=== PATIENT | male | born 1940 | race Caucasian/White ===

== ENCOUNTER → 2016-09-12 | Outpatient (CLI) | payer MEDICARE ==
[~2016-09-12] MED LIST: ALBU2.5V4; AMLO1CAP5; AMLO1CAP5 PO; ASPI-875 PO; CEFD300C16; CLPD75T PO; EZET1TAB36 PO; EZET1TAB43 PO; HYDR480S10; LOTREL 5/10; MNTL10T; OMEP20CA12 PO; PRILOSEC 20MG; PROSTA-METTO PO; PULMICORT; TRZ100T PO; TRZ50T PO; [UNRECOGNIZED DRUG - OTHER]; [UNRECOGNIZED DRUG - OTHER] PO
--- OUTSIDE RECORDS SUMMARY | 2016-09-12 12:06 | XMS REPORT | Continuity of Care Document ---
Author Author [facility] Organization [facility] Address Unknown Phone Unavailable Care Team Providers Care Mechanical Manufacturing Technician Name Role Phone Hosea Leiva PCP [phone] Source Comments Some departments are not documenting in the electronic medical record. If you do not see the information that you expected, contact Release of Information in the Health Information Management department at [phone] for further assistance in locating additional records.[facility] Active Allergies and Adverse Reactions No Known Allergies Current Medications Prescription Sig. Disp. Refills Start End Date Status Date OMEPRAZOLE (PRILOSEC PO) Take 20 mg by mouth Active Daily. clopidogrel (PLAVIX) 75 Take 75 mg by mouth Active mg Tab Daily. ZN GLUC/PUMP SEED OIL/SAW Take by mouth Daily. Active PAL (SAW PALMETTO COMPLEX,PUMK& ZN, PO) MULTIVITAMINS Take by mouth Daily. Active (MULTIVITAMIN PO) ezetimibe/simvastatin Take 1 Tab by mouth at Active (VYTORIN) 10/20 mg tablet bedtime daily. 1 Tab amLODIPine/lisinopril Take 1 Tab by mouth Active 5/20 mg tablet 1 Tab daily. traZODone (DESYREL) 50 mg Take 100 mg by mouth at Active tablet bedtime daily. docusate (COLACE) 100 mg Take 1 Cap by mouth daily 180 Cap 1 10/20/20 Active capsule as needed for 12 Constipation. ciprofloxacin (CIPRO) 500 Take 1 Tab by mouth twice 20 Tab 0 10/20/20 Active mg tablet daily. 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 Ear lesion 05/19/2012 Stroke ([facility]) 01/25/2010 Immunizations Name Dates Previously Given Next Due FLU VACCINE >3YO 05/15/2012 (Preservative Free) Pneumococcal Vaccine 07/27/2009 (23-Precious Adult) Social History Tobacco Use Types Packs/Day Years Used Date Never Smoker Smokeless Tobacco: Never Used Tobacco Cessation: Counseling Given: No Comments: Alcohol Use Drinks/Week oz/Week Comments No Last Filed Vital Signs Vital Sign Reading Time Taken Blood Pressure 145/83 08/23/2012 4:02 PM WHEEL SHOP SUPERVISOR Pulse 67 08/23/2012 4:02 PM WHEEL SHOP SUPERVISOR Temperature 36.7 C (98.1 F) 05/15/2012 11:40 AM CDT Respiratory Rate - - Height 1.683 m (5' 6.25") 08/23/2012 4:02 PM WHEEL SHOP SUPERVISOR Weight 80.468 kg (177 lb 6.4 oz) 08/23/2012 4:02 PM WHEEL SHOP SUPERVISOR Body Mass Index 28.41 08/23/2012 4:02 PM WHEEL SHOP SUPERVISOR Oxygen Saturation 98% 05/15/2012 11:40 AM CDT Plan of Care Health Maintenance Due Date Last Done Comments Physical (Comprehensive) 1947 Exam Pertussis Vaccine 1950 Tetanus Vaccine 1956 Shingles Vaccine 1999 Prevnar/Pneumovax (#2) 07/27/2010 07/27/2009 Influenza Vaccine 03/27/2016 05/15/2012 Results from Last 3 Months Not on file
--- NOTE | 2016-09-12 12:25 | Diagnostic Imaging Report ---
AP and frog lateral views of the right hip. INDICATION: Right hip pain. FINDINGS: There is mild subchondral sclerosis and degenerative changes with no significant joint space loss. No fracture or dislocation. Mild degenerative sclerotic changes at the symphysis pubis and right SI joint are seen. IMPRESSION: Mild degenerative changes. Dictated by: Dictated on workstation # [id number]
--- NOTE | 2016-09-12 16:41 | Diagnostic Imaging Report ---
CLINICAL INDICATION: Patient complains of pain and numbness radiating down right hip and leg for approximately one month. No known injury. EXAM: X-ray lumbar spine, three views. COMPARISON: MRI of the lumbar spine performed without IV contrast dated 03/14/2010. FINDINGS: There is no acute lumbar spine fracture. There is interval development of mild grade 1 anterolisthesis of L4 on L5. There is progression of mild to moderate loss of intervertebral disc height at the L3-L4 level. There is mild loss of intervertebral disc height posteriorly at the L5-S1 level. There is slight progression of hypertrophic anterior spurs. There is lower lumbar spine facet arthropathy. The sacroiliac joints, sacrum, and visualized portions of the pelvis are unremarkable. Surgical clips are seen overlying the right upper quadrant which could be related to cholecystectomy changes. 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 Dictated by: Dictated on workstation # [id number]
== END ==
LOC: RAD 12:01
DX: M51.36 Other intervertebral disc degeneration, lumbar region (principal); M16.11 Unilateral primary osteoarthritis, right hip
CPT/HCPCS: 72100; 73502

== ENCOUNTER → 2016-09-23 | Outpatient (CLI) | payer MEDICARE ==
--- OUTSIDE RECORDS SUMMARY | 2016-09-23 08:10 | XMS REPORT | Continuity of Care Document ---
Author Author [facility] Organization [facility] Address Unknown Phone Unavailable Care Team Providers Care Alpine Patroller Name Role Phone Hosea Leiva PCP [phone] Source Comments Some departments are not documenting in the electronic medical record. If you do not see the information that you expected, contact Release of Information in the Health Information Management department at [phone] for further assistance in locating additional records.[facility] Active Allergies and Adverse Reactions No [...] situ (HCC) 05/19/2012 Ear lesion 05/19/2012 Stroke ([facility]) 01/25/2010 Immunizations Name Dates Previously Given Next Due FLU VACCINE >3YO 05/15/2012 (Preservative Free) Pneumococcal Vaccine 07/27/2009 (23-Precious Adult) Social History Tobacco Use Types Packs/Day Years Used Date Never Smoker Smokeless Tobacco: Never Used Tobacco Cessation: Counseling Given: No Comments: Alcohol Use Drinks/Week oz/Week Comments No Last Filed Vital Signs Vital Sign Reading Time Taken Blood Pressure 145/83 08/23/2012 4:02 PM CLOTH SPREADER Pulse 67 08/23/2012 4:02 PM CLOTH SPREADER Temperature 36.7 C (98.1 F) 05/15/2012 11:40 AM CDT Respiratory Rate - - Height 1.683 m (5' 6.25") 08/23/2012 4:02 PM CLOTH SPREADER Weight 80.468 kg (177 lb 6.4 oz) 08/23/2012 4:02 PM CLOTH SPREADER Body Mass Index 28.41 08/23/2012 4:02 PM CLOTH SPREADER Oxygen Saturation 98% 05/15/2012 11:40 AM CDT Plan of Care Health Maintenance Due Date Last Done Comments Physical (Comprehensive) 1947 Exam Pertussis Vaccine 1950 Tetanus Vaccine 1956 Shingles Vaccine 1999 Prevnar/Pneumovax (#2) 07/27/2010 07/27/2009 Influenza Vaccine 03/27/2016 05/15/2012 Results from Last 3 Months Not on file
--- NOTE | 2016-09-23 09:59 | Diagnostic Imaging Report ---
PROCEDURE: MRI lumbar spine. TECHNIQUE: Multiplanar, multisequence MRI of the lumbar spine was performed without contrast. INDICATION: Back pain. FINDINGS: There is satisfactory alignment of the lumbar spine. The vertebral body heights are preserved. There is disc desiccation at all levels and moderate disc height loss at the L3/L4 level with significant disc height loss posteriorly. Also posteriorly around the endplates, there is bone marrow edema, Modic type I reactive changes probably secondary to disc disease. There is no significant marrow signal changes otherwise. The cauda equina and conus medullaris appear grossly unremarkable. Suggestion of probably simple renal cysts in the right kidney seen. Multilevel facet joint arthropathy is noted more prominent in the lower lumbar spine. T12/L1: No disc herniation, no spinal canal or foraminal narrowing. L1/2: Minimal disc bulge and mild facet arthropathy seen without spinal canal or foraminal stenosis. L2/3: There is a diffuse disc bulge and mild facet hypertrophy without central canal stenosis. There is mild narrowing in the left lateral recess. The right lateral recess is patent. No significant foraminal stenosis. L3/L4: There is a diffuse disc bulge and bilateral moderate facet arthropathy. No central canal stenosis. There is bilateral moderate lateral recess stenosis abutting the descending L4 nerve roots. There is moderate to severe bilateral foraminal stenosis. L4/5: There is a disc bulge and bilateral facet arthropathy of moderate to severe degree, worse on the right side. This is associated with bilateral moderate lateral recess stenosis abutting the descending L5 nerve roots without central canal stenosis. L5/S1: There is a disc bulge and bilateral moderate facet arthropathy. No central canal stenosis. There is minimal narrowing of the right lateral recess and no narrowing of the left lateral recess. The neural foramina demonstrate moderate to severe stenosis bilaterally worse on the right side. IMPRESSION: Degenerative disc and facet changes more in the lower lumbar spine with multilevel neural foraminal and lateral recess stenosis. Dictated by: Dictated on workstation # [id number]
== END ==
LOC: RAD 08:07
PROVIDERS: ATTEND Nurse Practitioner Family
DX: M48.06 Spinal stenosis, lumbar region (principal)
CPT/HCPCS: 72148

== ENCOUNTER → 2016-11-19 | Outpatient (CLI) | payer MEDICARE ==
--- NOTE | 2016-11-19 18:36 | Diagnostic Imaging Report ---
EXAMINATION: KUB. INDICATION: Left ureteric stone. FINDINGS: There are two flank calcifications, one measuring 9 mm and the other measuring 5 mm suggestive of left kidney stones. No other definitive urinary tract stone is identified. Moderate amount of fecal material is seen in the colon. Surgical clips in the upper right abdomen are seen. IMPRESSION: Left flank calcifications up to 9 mm in size suggestive of left kidney stones. Dictated by: Dictated on workstation # [id number]
== END ==
LOC: RAD 16:06
PROVIDERS: ATTEND Urology
DX: N20.0 Calculus of kidney (principal)
CPT/HCPCS: 74000

== ENCOUNTER → 2016-12-12 | Outpatient (CLI) | payer MEDICARE ==
--- NOTE | 2016-12-15 09:36 | ECHOCARDIOGRAPHY REPORT ---
DATE OF SERVICE: 12/12/2016 REFERRING PHYSICIAN: Dr. Leiva. MEASUREMENT: LVID end diastolic 3.3, IVS thickness 1.3, left LVPW thickness 1.0, left atrial diameter 3.1, ejection fraction 60%. FINDINGS: 1. Technical quality is good. 2. The left ventricle is normal in size with mild hypertrophy noted at the base of the septum giving the septum a sigmoid shape. Systolic function appeared to be normal. Estimated ejection fraction 60%. 3. The left atrium is normal in size. No clot or thrombus were seen within the left atrium. 4. The right atrium and right ventricle are normal in size. No clot or thrombus were seen within the right side. 5. Mitral valve is normal in morphology with mild mitral regurgitation noted by color Doppler flow. No mitral valve prolapse. No mitral valve stenosis. 6. Aortic valve is mildly calcified still opening and closing normally. No significant aortic valve stenosis or regurgitation was seen. 7. Tricuspid valve is normal in morphology with mild tricuspid regurgitation noted by color Doppler flow. Doppler across the tricuspid valve estimated pulmonary artery pressure of 29+ right atrial pressure. 8. Pulmonic valve is functioning normally. 9. No pericardial effusion. CONCLUSION: 1. Mild hypertrophy noted at the base of the septum giving the septum a sigmoid shape. Systolic function appeared to be normal. Estimated ejection fraction 60%. 2. Mild mitral and tricuspid regurgitation. 3. Estimated pulmonary artery pressure of 35 mmHg. Job ID: [id number] DocumentID: [id number] Dictated Date: 12/15/2016 08:00:20 Rn Midwife Date: 12/15/2016 08:36:38 Dictated By: SATURNINO IYER MD
== END ==
LOC: CARD 08:42
PROVIDERS: ATTEND Internal Medicine Cardiovascular Disease
DX: I25.10 Atherosclerotic heart disease of native coronary artery without angina pectoris (principal); R07.89 Other chest pain; I10 Essential (primary) hypertension; E78.2 Mixed hyperlipidemia; C43.9 Malignant melanoma of skin, unspecified
CPT/HCPCS: 93306

== ENCOUNTER → 2017-05-27 | Outpatient (CLI) | payer MEDICARE ==
--- NOTE | 2017-05-27 19:13 | Diagnostic Imaging Report ---
EXAMINATION: Supine view of the abdomen. INDICATION: Left renal stone. FINDINGS: There is a left flank calcification measuring 4 mm suggestive of a left kidney stone. There is another stone that was seen on exam from 11/19/2016 that appears to have passed. Phleboliths in the pelvis are noted. No definite right flank calcifications. Cholecystectomy clips are seen in the upper right abdomen. IMPRESSION: 4 mm left flank calcification is suggestive of a kidney stone. Dictated by: Dictated on workstation # [id number]
== END ==
LOC: RAD 16:24
PROVIDERS: ATTEND Urology
DX: R19.00 Intra-abdominal and pelvic swelling, mass and lump, unspecified site (principal)
CPT/HCPCS: 74000

== ENCOUNTER 2017-08-05 05:36 | Outpatient (CLI) | payer MEDICARE ==
[~2017-08-05] VITALS: Ht 170.2 cm; Wt 70.3 kg
[2017-08-05] MEDS ORDERED: METO-387 PO (10:43)
[2017-08-05] MEDS ORDERED: CLOP75TA28 PO (10:43)
[2017-08-05] MEDS ORDERED: AMLO10TA2 PO (10:43)
[2017-08-05] MEDS ORDERED: EZET1TAB65 PO (10:43)
[2017-08-05] MEDS ORDERED: OMEP20CA12 PO (10:43)
[2017-08-05] MEDS ORDERED: TRAZ-28 PO (10:43)
== END 2017-08-05 10:47 ==
LOC: PREOP 05:36
PROVIDERS: ATTEND Surgery
DX: Z01.818 Encounter for other preprocedural examination (principal); S20.352A Superficial foreign body of left front wall of thorax, initial encounter

== ENCOUNTER 2017-08-07 10:19 | Day surgery (SDC) | payer MEDICARE ==
[~2017-08-07] VITALS: Ht 170.2 cm; Wt 70.3 kg
[~2017-08-07 10:19] MED LIST changes: +AMLO10TA2 PO; +CLOP75TA28 PO; +EZET1TAB65 PO; +METO-387 PO; +TRAZ-28 PO
--- OUTSIDE RECORDS SUMMARY | 2017-08-07 10:23 | XMS REPORT | Clinical Summary ---
Author Author [facility] Organization [facility] Address Unknown Phone Unavailable Care Team Providers Care Data Processing Systems Project Planner Name Role Phone PCP Unavailable Source Comments Some departments are not documenting in the electronic medical record. If you do not see the information that you expected, contact Release of Information in the Health Information Management department at [phone] for further assistance in locating additional records.[facility] Allergies No Known Allergies Current Medications Prescription Sig. [...] stitches that are visible 3 times daily metoprolol XL (TOPROL XL) Take 25 mg by mouth Active 25 mg extended release daily. tablet EZETIMIBE/SIMVASTATIN Take by mouth. Active (VYTORIN 10-40 PO) omeprazole DR(+) Take 20 mg by mouth daily Active (PRILOSEC) 20 mg capsule before breakfast. amLODIPine (NORVASC) 10 Take 10 mg by mouth Active mg tablet daily. 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 Ear lesion 05/19/2012 Stroke (HCC) 01/25/2010 Immunizations Name Dates Previously Given Next Due FLU VACCINE >3YO 05/15/2012 (Preservative Free) Pneumococcal Vaccine 07/27/2009 (23-Precious Adult) Family History Medical History Relation Name Comments Heart Attack Father Migraines Father Stroke Father Alzheimer's Mother Relation Name Status Comments Father Mother Sister Alive Sister Alive Social History Tobacco Use Types Packs/Day Years Used Date Never Smoker Smokeless Tobacco: Never Used Tobacco Cessation: Counseling Given: No Alcohol Use Drinks/Week oz/Week Comments No 0 Standard 0.0 drinks or equivalent Sex Assigned at Date Recorded Not on file Last Filed Vital Signs Vital Sign Reading Time Taken Blood Pressure 115/70 12/25/2016 2:08 PM CDT Pulse 72 12/25/2016 2:08 PM CDT Temperature 36.7 C (98.1 F) 05/15/2012 11:40 AM CDT Respiratory Rate 20 12/25/2016 2:08 PM CDT Oxygen Saturation 97% 12/25/2016 2:08 PM CDT Inhaled Oxygen - - Concentration Weight 71.2 kg (157 lb) 12/25/2016 2:08 PM CDT Height 170.2 cm (5' 7") 12/25/2016 2:08 PM CDT Body Mass Index 24.59 12/25/2016 2:08 PM CDT Plan of Treatment Health Maintenance Due Date Last Done Comments PHYSICAL (COMPREHENSIVE) 1947 EXAM PERTUSSIS VACCINE 1950 TETANUS VACCINE 1956 SHINGLES VACCINE 1999 PREVNAR/PNEUMOVAX (#2) 07/27/2010 07/27/2009 INFLUENZA VACCINE 02/24/2017 05/15/2012 Results Not on filefrom Last 3 Months
--- OUTSIDE RECORDS SUMMARY | 2017-08-07 10:24 | XMS REPORT ---
Author Author [facility] Medical Staff Organization [facility] Address [address] [place], [place] [address] Phone [phone] Summary purpose CCDA Sent to [facility] Chief Complaint and Reason for Visit No authorized Reason for Visit (Admitting Diagnosis) is available for this visit. Problem list No authorized problems tracked for continuity of care are available for this visit. Encounters No authorized problems tracked for encounter diagnoses are available for this visit. Medications No medications recorded for this patient visit Allergies, adverse reactions, alerts Allergen Category Ingredient Status Reaction Severity Onset No known food allergies No known food allergies No known food allergies Active No known drug allergies No known drug allergies No known drug allergies Active Immunizations No immunizations recorded for this patient visit Relevant diagnostic tests and/or laboratory data No authorized results are available for this patient visit History of procedures Procedure Code Code Type Description Date Performed Performing Physician 00104 CPT-4 INITIAL HOSPITAL CARE 04-16-2016 EMILE LINDSEY 90995 CPT-4 HOSPITAL DISCHARGE DAY 04-17-2016 KESHIA WINN Functional status No functional or cognitive status observations are available for this visit. Vital signs No authorized vital signs are available for this visit. Social history No Social History or smoking status observations were recorded for this visit. ( Unknown if ever smoked.) Treatment Plan No treatment plan text is available for this visit. Hospital discharge instructions No discharge instruction text is available for this visit.
--- OUTSIDE RECORDS SUMMARY | 2017-08-07 10:24 | XMS REPORT ---
Author Author [facility] Medical Staff Organization [facility] Address [address], [place] [address] Phone [phone] Summary purpose CCDA Sent to [facility] Chief Complaint and Reason for Visit No authorized Reason for Visit (Admitting Diagnosis) is available for this visit. Problem list No authorized problems tracked for continuity of care are available for this visit. Encounters No authorized problems tracked for encounter diagnoses are available for this visit. Medications Discharge Medications Status Medication Directions Current amLODIPine (NORVASC) 10 mg: TABLET 10 MG oral ONE TIME A DAY Current clopidogrel (PLAVIX) 75 mg: TABLET 75 MG oral DAILY AT 8 PM Current Vytorin 10 mg-20 mg tablet 1 tab(s) oral BEDTIME Stopped Lotrel 5 mg-20 mg capsule 1 tab(s) oral BEDTIME Stopped metFORMIN 500 mg tablet 500 miligram(s) oral ONE TIME A DAY Stopped Plavix 75 mg tablet oral DAILY AT 8 PM Allergies, adverse reactions, alerts Allergen Category Ingredient Status Reaction Severity Onset No known food allergies No known food allergies No known food allergies Active No known drug allergies No known drug allergies No known drug allergies Active Immunizations No immunizations recorded for this patient visit Relevant diagnostic tests and/or laboratory data RESULTS Complete Blood Count [id number]:30:00 Result Normal Range Units White Blood Count 8.32 4.8-10.8 x 103/uL Red Blood Cells L 4.10 4.7-6.1 x 106/uL Hemoglobin L 13.3 14.0-18.0 g/dl Hematocrit L 39.6 42.0-52.0 % Mean Jose Juan Volume 96.6 80-100 FL Mean Jose Juan Hemoglobin H 32.4 27-31 pg Mean Jose Juan Hemoglobin Conc 33.6 32-36 g/dl Red Cell Distribution Width 12.8 11.5-14.5 % Platelet Count 163 150-350 x 103/uL Mean Platelet Volume 9.5 7.4-10.4 FL Neutrophil % H 71.7 50-70 % Neutrophil # 5.97 1.4-6.5 x 103/uL Lymphocyte % L 15.9 20.0-44.0 % Lymphocyte # 1.32 1.2-3.4 x 103/uL Monocyte % H 10.8 2.0-9.0 % Monocyte # H 0.90 0.1-0.6 x 103/uL Eosinophil % 1.2 0.0-6.0 % Eosinophil # 0.10 0.0-0.4 x 103/uL Basophil % 0.4 0.0-1.0 % Basophil # 0.03 0.0-0.1 x 103/uL :39:00 Result Normal Range Units White Blood Count H 13.75 4.8-10.8 x 103/uL Red Blood Cells L 4.29 4.7-6.1 x 106/uL Hemoglobin L 13.8 14.0-18.0 g/dl Hematocrit L 41.3 42.0-52.0 % Mean Jose Juan Volume 96.3 80-100 FL Mean Jose Juan Hemoglobin H 32.2 27-31 pg Mean Jose Juan Hemoglobin Conc 33.4 32-36 g/dl Red Cell Distribution Width 12.9 11.5-14.5 % Platelet Count 185 150-350 x 103/uL Mean Platelet Volume 9.4 7.4-10.4 FL Neutrophil % H 88.8 50-70 % Neutrophil # H 12.22 1.4-6.5 x 103/uL Lymphocyte % L 4.8 20.0-44.0 % Lymphocyte # L 0.66 1.2-3.4 x 103/uL Monocyte % 6.3 2.0-9.0 % Monocyte # H 0.86 0.1-0.6 x 103/uL Eosinophil % 0.0 0.0-6.0 % Eosinophil # 0.00 0.0-0.4 x 103/uL Basophil % 0.1 0.0-1.0 % Basophil # 0.01 0.0-0.1 x 103/uL Segmented Neutrophil 90.0 Lymphocyte 4.0 Monocyte 6.0 Platelet Estimate Platelets Adequate :38:00 Result Normal Range Units White Blood Count 9.09 4.8-10.8 x 103/uL Red Blood Cells L 4.38 4.7-6.1 x 106/uL Hemoglobin 14.1 14.0-18.0 g/dl Hematocrit L 41.9 42.0-52.0 % Mean Jose Juan Volume 95.7 80-100 FL Mean Jose Juan Hemoglobin H 32.2 27-31 pg Mean Jose Juan Hemoglobin Conc 33.7 32-36 g/dl Red Cell Distribution Width 13.0 11.5-14.5 % Platelet Count 197 150-350 x 103/uL Mean Platelet Volume 9.1 7.4-10.4 FL Neutrophil % 63.2 50-70 % Neutrophil # 5.74 1.4-6.5 x 103/uL Lymphocyte % 25.4 20.0-44.0 % Lymphocyte # 2.31 1.2-3.4 x 103/uL Monocyte % H 9.9 2.0-9.0 % Monocyte # H 0.90 0.1-0.6 x 103/uL Eosinophil % 1.2 0.0-6.0 % Eosinophil # 0.11 0.0-0.4 x 103/uL Basophil % 0.3 0.0-1.0 % Basophil # 0.03 0.0-0.1 x 103/uL Urinalysis [id number]:38:00 Result Normal Range Units Site Clean Catch Result Amended on 2016-04-16 at 03:15:02. Previous status was FR. Urine Appearance AB Slightly cloudy Urine Color AB Dark Yellow Yellow;Lt Yellow Result Amended on 2016-04-16 at 03:15:01. Previous status was FR. Urine Bilirubin (Dipstick) Negative Negative Result Amended on 2016-04-16 at 03:15:01. Previous status was FR. Urine Blood (Dipstick) AB 3+ Negative Result Amended on 2016-04-16 at 03:15:01. Previous status was FR. Urine Glucose (Dipsitck) Negative Negative Result Amended on 2016-04-16 at 03:15:01. Previous status was FR. Urine Ketones (Dipsitck) Negative Negative Result Amended on 2016-04-16 at 03:15:01. Previous status was FR. Urine Leukocyte (Dipstick) Negative Negative Result Amended on 2016-04-16 at 03:15:01. Previous status was FR. Urine Nitrite (Dipstick) Negative Negative Result Amended on 2016-04-16 at 03:15:01. Previous status was FR. Urine pH (Dipstick) 5.0 Result Amended on 2016-04-16 at 03:15:01. Previous status was FR. Urine Protein (Dipstick) AB 1+ Negative Result Amended on 2016-04-16 at 03:15:01. Previous status was FR. Urine Specific [place] (Dipsti 1.010 Result Amended on 2016-04-16 at 03:15:01. Previous status was FR. Urine Urobilinogen (Dipstick) 0.2 EU/dL Result Amended on 2016-04-16 at 03:15:01. Previous status was FR. Urine RBC 51-100 Urine WBC None Seen Urine Bacteria Few Urine Epi's 0-2 Uric Acid Crystals 0-2 Chemistry Group :30:00 Result Normal Range Units Urea Nitrogen (BUN) H 24 7-18 mg/dl Creatinine H 2.29 0.6-1.3 mg/dl Glucose 94 74-106 mg/dl Sodium 141 136-145 mmol/L Potassium 4.2 3.5-5.1 mmol/L Chloride H 108 98-107 mmol/L CO2 26.2 21-32 mmol/L Calcium 8.6 8.5-10.1 mg/dl Osmolality Calculation 285 [id number]:39:00 Result Normal Range Units Urea Nitrogen (BUN) H 30 7-18 mg/dl Creatinine H 2.29 0.6-1.3 mg/dl Glucose H 180 74-106 mg/dl Sodium 141 136-145 mmol/L Potassium 4.5 3.5-5.1 mmol/L Chloride 105 98-107 mmol/L CO2 24.5 21-32 mmol/L Calcium 8.9 8.5-10.1 mg/dl Albumin 3.8 3.4-5.0 g/dl Alkaline Phosphatase 68 46-116 U/L ALT 56 30-65 U/L AST 37 15-37 U/L Protein Total L 6.3 6.4-8.2 g/dl Bilirubin Total 0.4 0.2-1.0 mg/dl Osmolality Calculation 292 [id number]:38:00 Result Normal Range Units Urea Nitrogen (BUN) H 30 7-18 mg/dl Creatinine H 1.89 0.6-1.3 mg/dl Glucose H 168 74-106 mg/dl Sodium 141 136-145 mmol/L Potassium 4.3 3.5-5.1 mmol/L Chloride 105 98-107 mmol/L CO2 26.1 21-32 mmol/L Calcium 9.1 8.5-10.1 mg/dl Albumin 4.0 3.4-5.0 g/dl Alkaline Phosphatase 66 46-116 U/L ALT 46 30-65 U/L AST 26 15-37 U/L Protein Total 6.4 6.4-8.2 g/dl Bilirubin Total 0.4 0.2-1.0 mg/dl Osmolality Calculation 291 Amylase L 21 25-115 U/L Lipase 142 73-393 U/L History of procedures No procedures recorded for this patient visit. Functional status Functional Status Finding Observation Time Dexterity Right-handed :20 Weight Bearing Statu Full [id number]:00 Transferring/Ambulat Independent :20 Bathing Independent :20 Dressing Independent :20 Eating Independent :20 Drinking Independent :20 Toileting Independent :20 Able to Turn Self in Independent :20 Stairs Independent :20 Cognitive Status Finding Observation Time Level of Consciousne Alert :30 Oriented to Person Yes :[address] Yes :30 Oriented to Time Yes :30 Eyes - GRAHAM Yes :30 Vital signs Type Value Date Respirations 18 :29 Pulse 62 :29 O2 Saturation 94% :29 Systolic Blood Press 148mm/HG :29 Diastolic Blood Pres 80mm/HG :29 Temperature (Fahr) 98.4Degrees :29 Height 67in :39 Weight 163LB :39 Social history Type Value Smoking Status NEVER SMOKER Treatment Plan Treatment Plan at SEE SCANNED DISCHARGE INSTRUCTIONS. Hospital discharge instructions No discharge instruction text is available for this visit.
--- OUTSIDE RECORDS SUMMARY | 2017-08-07 10:24 | XMS REPORT ---
Author Author [facility] Medical Staff Organization [facility] Address [address], [place] [address] Phone [phone] Summary purpose CCDA Sent to [facility] Chief Complaint and Reason for Visit [...] Relevant diagnostic tests and/or laboratory data RESULTS Chemistry Group [id number]:51:00 Result Normal Range Units Urea Nitrogen (BUN) 15 7-18 mg/dl Creatinine 1.29 0.6-1.3 mg/dl Glucose 90 74-106 mg/dl Sodium 141 136-145 mmol/L Potassium 4.3 3.5-5.1 mmol/L Chloride 105 98-107 mmol/L CO2 28.8 21-32 mmol/L Calcium 9.3 8.5-10.1 mg/dl Osmolality Calculation 282 History of procedures Procedure Code Code Type Description Date Performed Performing Physician 91198 CPT-4 METABOLIC PANEL TOTAL CA 04-21-2016 KESHIA WINN 49697 CPT-4 ROUTINE VENIPUNCTURE 04-21-2016 KESHIA WINN Functional status No functional or [...]
--- OUTSIDE RECORDS SUMMARY | 2017-08-07 10:24 | XMS REPORT ---
Author Author [facility] Medical Staff Organization [facility] Address [address], [place] [address] Phone [phone] Summary purpose CCDA Sent to [facility] Chief Complaint and Reason for [...] Code Type Description Date Performed Performing Physician [id number] CPT-4 OFFICE/OUTPATIENT VISIT, EST 04-21-2016 KESHIA WINN Functional status No functional [...]
--- OUTSIDE RECORDS SUMMARY | 2017-08-07 10:24 | XMS REPORT ---
Author Author [facility] Medical Staff Organization [facility] Address [address], [place] [address] Phone [phone] Summary purpose CCDA Sent to [facility] Chief Complaint and Reason for Visit [...] for this patient visit History of procedures No procedures recorded for this patient visit. Functional status No functional or cognitive status [...]
--- OUTSIDE RECORDS SUMMARY | 2017-08-07 10:24 | XMS REPORT ---
Author Author [facility] Medical Staff Organization [facility] Address [address], [place] [id number] Phone [phone] Summary purpose CCDA Sent to [facility] Chief Complaint and Reason for [...]
--- OUTSIDE RECORDS SUMMARY | 2017-08-07 10:25 | XMS REPORT | Continuity of Care Document ---
Author Author [facility] Organization [facility] Address Unknown Phone Unavailable Allergies Active Description Code Type Severity Reaction Onset Reported/Identified Relationship to Patient Clinical Status Yes No Known Drug Allergies [id number] Drug Allergy Unknown N/A 10/19/2007 Yes No known drug allergies [id number] ND N/A N/A 04/16/2016 Confirmed or Verified Yes No known food allergies NO KNOWN FOOD ALLERG NF N/A N/A 04/16/2016 Confirmed or Verified Yes No known drug allergies [id number] ND N/A N/A 04/16/2016 Confirmed or Verified Yes No known food allergies NO KNOWN FOOD ALLERG NF N/A N/A 04/16/2016 Confirmed or Verified Medications Medication Packaging Start Date Stop Date Route Dosage Sig LACTATED RINGERS 1000 ML IV SOLN BAG 04/17/2016 04/18/2016 IV PRE-OP ceFAZolin 1GM VIAL VL 04/17/2016 04/17/2016 IV PRE-OP fentaNYL 250 MCG/5ML INJ AMP 201504/17/2016 IV ONCE LACTATED RINGERS 1000 ML IV SOLN BAG 04/17/2016 04/17/2016 IV ONCE SODIUM CHLORIDE 0.9% 3000ML IRRIG SOLN BAG 04/17/2016 04/17/2016 IRR ONCE MEPERIDINE 25MG/1ML INJECTION VL 04/18/2016 IV POST-OP oxyCODONE/ACETAMINOPHEN 5-325 MG TABLET TAB 04/17/2016 04/17/2017 PO [id number] OXYBUTYNIN 5MG TABLET TAB 201504/17/2017 PO TIDPRN HYDROcodone/ACETAMINOPHEN 5-325 MG TABLET TAB 04/17/2016 04/17/2017 PO [id number] SODIUM CHLORIDE 0.9% 1000ML IV SOLN BAG 04/17/2016 04/17/2017 LVP 125ML/HR ONDANSETRON 4MG/2ML INJ VL 201504/17/2017 IVP [id number] PROMETHAZINE 25 MG/1ML INJ VL 04/1704/17/2017 IM [id number] Problems Date Dx Coded Attending Type Code Diagnosis Diagnosed By 12/07/2009 Ot 486 12/07/2009 Ot V58.69 01/17/2010 Ot 272.4 01/17/2010 Ot 300.4 01/17/2010 Ot 401.9 01/17/2010 Ot 435.9 01/17/2010 Ot 786.59 01/17/2010 Ot V12.54 01/17/2010 Ot V58.63 01/17/2010 Ot V58.69 02/02/2013 SATURNINO IYER MD Ot 272.4 HYPERLIPIDEMIA NEC/NOS 02/02/2013 SATURNINO IYER MD Ot 401.9 HYPERTENSION NOS 02/02/2013 SATURNINO IYER MD Ot 414.01 CORONARY ATHEROSCLEROSIS OF [place] CORON 02/02/2013 SATURNINO IYER MD Ot 433.10 CAROTID ARTERY OCCLUSION W O CEREBRAL IN 02/02/2013 SATURNINO IYER MD Ot 786.50 CHEST PAIN NOS 02/02/2013 SATURNINO IYER MD Ot 794.30 ABN CARDIOVASC STUDY NOS 02/02/2013 SATURNINO IYER MD Ot V10.82 HX-MALIG SKIN MELANOMA 02/02/2013 SATURNINO IYER MD Ot V12.54 PERSONAL HX OF TIA, CEREBRAL INFARCTION 02/02/2013 SATURNINO IYER MD Ot V58.63 LONG-TERM(CURRENT)USE OF ANTIPLATELET/AN 02/02/2013 SATURNINO IYER MD Ot V58.69 OTH MED,LT,CURRENT USE 08/03/2014 AYDE JOHANSEN MD Ot 434.91 08/21/2014 AYDE JOHANSEN MD Ot 434.91 01/17/2015 Ot 486 01/17/2015 Ot V58.69 01/17/2015 Ot 722.52 01/17/2015 Ot 733.6 01/17/2015 Ot 414.00 01/17/2015 Ot 592.0 01/17/2015 Ot 786.50 01/17/2015 Ot 223.0 01/17/2015 Ot 753.10 01/17/2015 Ot 786.05 01/17/2015 SATURNINO IYER MD Ot 272.4 01/17/2015 SATURNINO IYER MD Ot 397.0 01/17/2015 SATURNINO IYER MD Ot 401.9 01/17/2015 SATURNINO IYER MD Ot 414.00 01/17/2015 SATURNINO IYER MD Ot 424.0 01/17/2015 SATURNINO IYER MD Ot 433.10 01/17/2015 SATURNINO IYER MD Ot 434.91 01/17/2015 SATURNINO IYER MD Ot V58.69 01/17/2015 AYDE JOHANSEN MD Ot 434.91 02/14/2015 HAILY VALENTINO AYDE Krystal Ot 715.31 02/15/2015 HAILY VALENTINO AYDE Krystal Ot 715.31 07/04/2015 HAILY VALENTINO AYDE D Ot R07.82 07/12/2015 HAILY VALENTINO AYDE Krystal Ot R07.82 09/11/2015 MEDHAT RESTREPO TRANSIT WORKER Ot M25.511 09/11/2015 MEDHAT RESTREPO TRANSIT WORKER Ot M79.601 09/21/2015 MEDHAT RESTREPO TRANSIT WORKER Ot M25.511 09/21/2015 MEDHAT RESTREPO TRANSIT WORKER Ot M79.601 04/16/2016 KESHIA WINN MD E11.9 Type 2 diabetes mellitus without complications 04/16/2016 KESHIA WINN MD E78.5 Hyperlipidemia, unspecified 04/16/2016 KESHIA WINN MD I10 Essential (primary) hypertension 04/16/2016 KESHIA WINN MD N13.2 Hydronephrosis with renal and ureteral calculous obstruction 04/16/2016 KESHIA WINN MD N28.9 Disorder of kidney and ureter, unspecified 04/16/2016 KESHIA WINN MD N40.1 Benign prostatic hyperplasia with lower urinary tract symp 04/16/2016 KESHIA WINN MD Z79.01 director long term care (current) use of anticoagulants 04/16/2016 KESHIA WINN MD Z79.4 MCC (current) use of insulin 04/16/2016 KESHIA WINN MD Z86.73 Prsnl hx of TIA (TIA), and cereb infrc w/o resid deficits 04/17/2016 D E11.9 Type 2 diabetes mellitus without complications 04/17/2016 D E78.5 Hyperlipidemia , unspecified 04/17/2016 D I10 Essential ( primary) hypertension 04/17/2016 D N13.2 Hydronephrosis with renal and ureteral calculous obstruction 04/17/2016 D N28.9 Disorder of kidney and ureter, unspecified 04/17/2016 D N40.1 Benign prostatic hyperplasia with lower urinary tract symp 04/17/2016 D Z79.01 director long term care ( current) use of anticoagulants 04/17/2016 D Z79.4 director long term care ( current) use of insulin 04/17/2016 D Z86.73 Prsnl hx of TIA (TIA), and cereb infrc w/o resid deficits 04/17/2016 D E78.5 Hyperlipidemia , unspecified 04/17/2016 D I10 Essential ( primary) hypertension 04/17/2016 D N13.2 Hydronephrosis with renal and ureteral calculous obstruction 04/17/2016 D N28.9 Disorder of kidney and ureter, unspecified 04/17/2016 D Z86.73 Prsnl hx of TIA (TIA), and cereb infrc w/o resid deficits 04/18/2016 DF E11.9 Type 2 diabetes mellitus without complic 04/18/2016 DF E78.5 Hyperlipidemia, unspecified 04/18/2016 DF I10 Essential ( primary) hypertension 04/18/2016 DF N13.2 Hydronephrosis with renal and ureteral c 04/18/2016 DF N19 Unspecified kidney failure 04/18/2016 DF Z79.02 director long term care ( current) use of antithromboti 04/18/2016 DF Z86.73 Personal history of transient ischemic a 04/21/2016 D I10 Essential ( primary) hypertension 04/21/2016 D N20.1 Calculus of ureter 04/21/2016 D I10 Essential ( primary) hypertension 05/08/2016 Ot 733.6 TIETZE'S DISEASE 05/08/2016 Ot 414.00 CORON ATHEROSCLER NOS TYPE VESSEL, NATIV 05/08/2016 Ot 592.0 CALCULUS OF KIDNEY 05/08/2016 Ot 786.50 CHEST PAIN NOS 05/08/2016 Ot 223.0 BENIGN NEOPLASM KIDNEY 05/08/2016 Ot 753.10 CYSTIC KIDNEY DISEASE, UNSPECIFIED 05/08/2016 Ot 786.05 SHORTNESS OF BREATH 05/08/2016 SATURNINO IYER MD Ot 272.4 HYPERLIPIDEMIA NEC/NOS 05/08/2016 SATURNINO IYER MD Ot 397.0 TRICUSPID VALVE DISEASE 05/08/2016 SATURNINO IYER MD Ot 401.9 HYPERTENSION NOS 05/08/2016 SATURNINO IYER MD Ot 414.00 CORON ATHEROSCLER NOS TYPE VESSEL, NATIV 05/08/2016 SATURNINO IYER MD Ot 424.0 MITRAL VALVE DISORDER 05/08/2016 SATURNINO IYER MD Ot 433.10 CAROTID ARTERY OCCLUSION W O CEREBRAL IN 05/08/2016 SATURNINO IYER MD Ot 434.91 CEREBRAL ART OCCLUSION NOS W CEREBRAL IN 05/08/2016 SATURNINO IYER MD Ot V58.69 OT MED,LT,CURRENT USE 05/08/2016 AYDE JOHANSEN MD Ot 434.91 CEREBRAL ART OCCLUSION NOS W CEREBRAL IN 05/08/2016 AYDE JOHANSEN MD Ot 719.41 JOINT PAIN-SHLDER 05/08/2016 AYDE JOHANSEN MD Ot 715.31 LOC OSTEOARTH NOS-SHLDER 05/08/2016 AYDE JOHANSEN MD Ot R07.82 INTERCOSTAL PAIN 05/08/2016 MEDHAT RESTREPO TRANSIT WORKER Ot M25.511 PAIN IN RIGHT SHOULDER 05/08/2016 MEDHAT RESTREPO TRANSIT WORKER Ot M79.601 PAIN IN RIGHT ARM 05/09/2016 MICHAEL VALENTINO, KARLEE Braxton Ot N20.0 CALCULUS OF KIDNEY 05/28/2016 MICHAEL VALENTINO, KARLEE Braxton Ot N20.1 CALCULUS OF URETER 05/29/2016 KARLEE RODRIGUEZ MD Ot N20.0 CALCULUS OF KIDNEY 06/05/2016 KARLEE RODRIGUEZ MD Ot N20.1 CALCULUS OF URETER 06/05/2016 KARLEE RODRIGUEZ MD Ot N20.0 CALCULUS OF KIDNEY 09/12/2016 Ot 733.6 TIETZE'S DISEASE 09/12/2016 Ot 414.00 CORON ATHEROSCLER NOS TYPE VESSEL, NATIV 09/12/2016 Ot 592.0 CALCULUS OF KIDNEY 09/12/2016 Ot 786.50 CHEST PAIN NOS 09/12/2016 Ot 223.0 BENIGN NEOPLASM KIDNEY 09/12/2016 Ot 753.10 CYSTIC KIDNEY DISEASE, UNSPECIFIED 09/12/2016 Ot 786.05 SHORTNESS OF BREATH 09/12/2016 SATURNINO IYER MD Ot 272.4 HYPERLIPIDEMIA NEC/NOS 09/12/2016 SATURNINO IYER MD Ot 397.0 TRICUSPID VALVE DISEASE 09/12/2016 SATURNINO IYER MD Ot 401.9 HYPERTENSION NOS 09/12/2016 SATURNINO IYER MD Ot 414.00 CORON ATHEROSCLER NOS TYPE VESSEL, NATIV 09/12/2016 SATURNINO IYER MD Ot 424.0 MITRAL VALVE DISORDER 09/12/2016 SATURNINO IYER MD Ot 433.10 CAROTID ARTERY OCCLUSION W O CEREBRAL IN 09/12/2016 SATURNINO IYER MD Ot 434.91 CEREBRAL ART OCCLUSION NOS W CEREBRAL IN 09/12/2016 SATURNINO IYER MD Ot V58.69 OT MED,LT,CURRENT USE 09/12/2016 AYDE JOHANSEN MD Ot 434.91 CEREBRAL ART OCCLUSION NOS W CEREBRAL IN 09/12/2016 AYDE JOHANSEN MD Ot 719.41 JOINT PAIN-SHLDER 09/12/2016 AYDE JOHANSEN MD Ot 715.31 LOC OSTEOARTH NOS-SHLDER 09/12/2016 AYDE JOHANSEN MD Ot R07.82 INTERCOSTAL PAIN 09/12/2016 MEDHAT RESTREPO APRN Ot M25.511 PAIN IN RIGHT SHOULDER 09/12/2016 MEDHAT RESTREPO APRN Ot M79.601 PAIN IN RIGHT ARM 09/12/2016 KARLEE RODRIGUEZ MD Ot N20.1 CALCULUS OF URETER 09/12/2016 KARLEE RODRIGUEZ MD Ot N20.0 CALCULUS OF KIDNEY 09/16/2016 AYDE JOHANSEN MD Ot M16.11 UNILATERAL PRIMARY OSTEOARTHRITIS, RIGHT 09/16/2016 AYDE JOHANSEN MD Ot M51.36 OTHER INTERVERTEBRAL DISC DEGENERATION, 09/24/2016 MEDHAT RESTREPO APRN Ot M48.06 SPINAL STENOSIS, LUMBAR REGION 10/06/2016 AYDE JOHANSEN MD Ot M16.11 UNILATERAL PRIMARY OSTEOARTHRITIS, RIGHT 10/06/2016 AYDE JOHANSEN MD Ot M51.36 OTHER INTERVERTEBRAL DISC DEGENERATION, 10/09/2016 AYDE JOHANSEN MD Ot M16.11 UNILATERAL PRIMARY OSTEOARTHRITIS, RIGHT 10/09/2016 HAILY VALENTINO, AYDE Rice Ot M51.36 OTHER INTERVERTEBRAL DISC DEGENERATION, 10/14/2016 MEDHAT RESTREPO TRANSIT WORKER Ot M48.06 SPINAL STENOSIS, LUMBAR REGION 10/22/2016 MEDHAT RESTREPO TRANSIT WORKER Ot M48.06 SPINAL STENOSIS, LUMBAR REGION 11/20/2016 KARLEE RODRIGUEZ MD Ot N20.0 CALCULUS OF KIDNEY 12/12/2016 KARLEE RODRIGUEZ MD Ot N20.0 CALCULUS OF KIDNEY 12/15/2016 SATURNINO IYER MD Ot C43.9 MALIGNANT MELANOMA OF SKIN, UNSPECIFIED 12/15/2016 SATURNINO IYER MD Ot E78.2 MIXED HYPERLIPIDEMIA 12/15/2016 SATURNINO IYER MD Ot I10 ESSENTIAL (PRIMARY) HYPERTENSION 12/15/2016 SATURNINO IYER MD Ot I25.10 ATHSCL HEART DISEASE OF [place] CORONARY 12/15/2016 SATURNINO IYER MD Ot R07.89 OTHER CHEST PAIN 12/23/2016 KARLEE RODRIGUEZ MD Ot N20.0 CALCULUS OF KIDNEY 01/05/2017 SATURNINO IYER MD Ot C43.9 MALIGNANT MELANOMA OF SKIN, UNSPECIFIED 01/05/2017 SATURNINO IYER MD Ot E78.2 MIXED HYPERLIPIDEMIA 01/05/2017 SATURNINO IYER MD Ot I10 ESSENTIAL (PRIMARY) HYPERTENSION 01/05/2017 SATURNINO IYER MD Ot I25.10 ATHSCL HEART DISEASE OF [place] CORONARY 01/05/2017 SATURNINO IYER MD Ot R07.89 OTHER CHEST PAIN 01/07/2017 SATURNINO IYER MD Ot C43.9 MALIGNANT MELANOMA OF SKIN, UNSPECIFIED 01/07/2017 SATURNINO IYER MD Ot E78.2 MIXED HYPERLIPIDEMIA 01/07/2017 SATURNINO IYER MD Ot I10 ESSENTIAL (PRIMARY) HYPERTENSION 01/07/2017 SATURNINO IYER MD Ot I25.10 ATHSCL HEART DISEASE OF [place] CORONARY 01/07/2017 SATURNINO IYER MD Ot R07.89 OTHER CHEST PAIN 06/19/2017 KARLEE RODRIGUEZ MD Ot R19.00 INTRA-ABD AND PELVIC SWELLING, MASS AND 06/25/2017 MICHAEL MD, KRALEE A Ot R19.00 INTRA-ABD AND PELVIC SWELLING, MASS AND Procedures Code Description [place] [id number] INITIAL HOSPITAL CARE EMILE MORIN 04/16/2016 79882 ROUTINE VENIPUNCTURE KESHIA WINN MD 04/16/[address] ABD & PELVIS W/O CONTRAST KESHIA WINN MD 04/16/2016 11960 COMPREHEN METABOLIC PANEL KESHIA WINN MD 04/16/2016 18129 URINALYSIS AUTO W/SCOPE KESHIA WINN MD 04/16/2016 84488 ASSAY OF AMYLASE KESHIA WINN MD 04/16/2016 87681 ASSAY OF LIPASE KESHIA WINN MD 04/16/2016 17869 COMPLETE CBC W/AUTO DIFF WBC KESHIA WINN MD 04/16/2016 47493 THER/PROPH/DIAG INJ IV PUSH KESHIA WINN MD 04/16/2016 16604 EMERGENCY DEPT VISIT KESHIA WINN MD 04/16/2016 J1170 HYDROMORPHONE INJECTION KESHIA WINN MD 04/16/2016 78195 HOSPITAL DISCHARGE DAY KESHIA WINN MD 04/17/2016 [id number] Dilation of Left Ureter with Intralumina 04/17/2016 [id number] Extirpation of Matter from Left Ureter, 04/17/2016 64560 OFFICE/OUTPATIENT VISIT EST KESHIA WINN MD 04/21/2016 27335 ROUTINE VENIPUNCTURE KESHIA WINN MD 04/21/2016 56003 METABOLIC PANEL TOTAL CA KESHIA WINN MD 04/21/2016 Results Test Result Range COMPLETE BLOOD COUNT - 04/16/16 03:00 MCV 95.7 FL 80-100 Platelet 197 10^3u 150-350 RBC 4.38 10^6u 4.7-6.1 MPV 9.1 FL 7.4-10.4 [place] % 9.9 % 2.0-9.0 [place] # 0.90 10^3u 0.1-0.6 MCHC 33.7 G/DL 32-36 WBC 9.09 10^3u 4.8-10.8 Neut % 63.2 % 50-70 Neut # 5.74 10^3u 1.4-6.5 RDW 13.0 % 11.5-14.5 Baso % 0.3 % 0.0-1.0 Baso # 0.03 10^3u 0.0-0.1 MCH 32.2 PG 27-31 Eos # 0.11 10^3u 0.0-0.4 Lymph % 25.4 % 20.0-44.0 Lymph # 2.31 10^3u 1.2-3.4 Eos % 1.2 % 0.0-6.0 HCT 41.9 % 42.0-52.0 HGB 14.1 G/DL 14.0-18.0 Urinalysis - 04/16/16 03:13 Ketones NEG Negative Bacteria FEW Urobilinogen 0.2 EU/dl Protein 1+ Negative Urine Appearance SLCLOUDY Clear pH 5.0 Leukocyte NEG Negative Glucose NEG Negative Nitrite NEG Negative Color Dk Yellow Yellow;Lt Yellow Urine Epithelial Cells N0-2 Urine RBC N51-100 Uric Acid Crystals N0-2 Specific [place] 1.010 Urine WBC NONESEEN Blood 3+ Negative Bilirubin NEG Negative Site CC CMP - 04/16/16 03:14 Potassium 4.3 MMOLL 3.5-5.1 Osmo Calculated 291 T Bili 0.4 MG/DL 0.2-1.0 T. Protein 6.4 G/DL 6.4-8.2 Sodium 141 MMOLL 136-145 Albumin 4.0 G/DL 3.4-5.0 Alk Phos 66 U/L 46-116 ALT 46 U/L 30-65 AST 26 U/L 15-37 Calcium 9.1 MG/DL 8.5-10.1 Chloride 105 MMOLL 98-107 CO2 26.1 MMOLL 21-32 Creatinine 1.89 MG/DL 0.6-1.3 Glucose 168 MG/DL 74-106 BUN 30 MG/DL 7-18 Amylase - 04/16/16 03:14 Amylase 21 U/L 25-115 Lipase - 04/16/16 03:14 Lipase 142 U/L 73-393 CMP - 04/16/16 09:16 Potassium 4.5 MMOLL 3.5-5.1 Osmo Calculated 292 T Bili 0.4 MG/DL 0.2-1.0 T. Protein 6.3 G/DL 6.4-8.2 Sodium 141 MMOLL 136-145 Albumin 3.8 G/DL 3.4-5.0 Alk Phos 68 U/L 46-116 ALT 56 U/L 30-65 AST 37 U/L 15-37 Calcium 8.9 MG/DL 8.5-10.1 Chloride 105 MMOLL 98-107 CO2 24.5 MMOLL 21-32 Creatinine 2.29 MG/DL 0.6-1.3 Glucose 180 MG/DL 74-106 BUN 30 MG/DL 7-18 COMPLETE BLOOD COUNT - 04/16/16 09:19 MCV 96.3 FL 80-100 Platelet Estimation PLTADEQ Platelet 185 10^3u 150-350 RBC 4.29 10^6u 4.7-6.1 MPV 9.4 FL 7.4-10.4 [place] % 6.3 % 2.0-9.0 [place] # 0.86 10^3u 0.1-0.6 [place] 6.0 MCHC 33.4 G/DL 32-36 WBC 13.75 10^3u 4.8-10.8 Neut % 88.8 % 50-70 Neut # 12.22 10^3u 1.4-6.5 Seg 90.0 RDW 12.9 % 11.5-14.5 Baso % 0.1 % 0.0-1.0 Baso # 0.01 10^3u 0.0-0.1 MCH 32.2 PG 27-31 Lymph 4.0 Eos # 0.00 10^3u 0.0-0.4 Lymph % 4.8 % 20.0-44.0 Lymph # 0.66 10^3u 1.2-3.4 Eos % 0.0 % 0.0-6.0 HCT 41.3 % 42.0-52.0 HGB 13.8 G/DL 14.0-18.0 COMPLETE BLOOD COUNT - 04/17/16 07:27 MCV 96.6 FL 80-100 Platelet 163 10^3u 150-350 RBC 4.10 10^6u 4.7-6.1 MPV 9.5 FL 7.4-10.4 [place] % 10.8 % 2.0-9.0 [place] # 0.90 10^3u 0.1-0.6 MCHC 33.6 G/DL 32-36 WBC 8.32 10^3u 4.8-10.8 Neut % 71.7 % 50-70 Neut # 5.97 10^3u 1.4-6.5 RDW 12.8 % 11.5-14.5 Baso % 0.4 % 0.0-1.0 Baso # 0.03 10^3u 0.0-0.1 MCH 32.4 PG 27-31 Eos # 0.10 10^3u 0.0-0.4 Lymph % 15.9 % 20.0-44.0 Lymph # 1.32 10^3u 1.2-3.4 Eos % 1.2 % 0.0-6.0 HCT 39.6 % 42.0-52.0 HGB 13.3 G/DL 14.0-18.0 [facility] - 04/17/16 07:35 Potassium 4.2 MMOLL 3.5-5.1 Osmo Calculated 285 Sodium 141 MMOLL 136-145 Calcium 8.6 MG/DL 8.5-10.1 Chloride 108 MMOLL 98-107 CO2 26.2 MMOLL 21-32 Creatinine 2.29 MG/DL 0.6-1.3 Glucose 94 MG/DL 74-106 BUN 24 MG/DL 7-18 Calculus analysis [Interpretation] in Stone by Infrared spectroscopy Narrative - 04/17/16 18:20 Calculus analysis [interpretation] in Stone by Infrared spectroscopy Narrative See Scan Comprehensive metabolic 2000 panel - Serum or Plasma - 04/18/16 06:40 Glucose [Mass/volume] in Serum or Plasma 96 mg/dl 64 - 112 Urea nitrogen [Mass/volume] in Serum or Plasma 14.7 mg/dl 8.4 - 25.8 Creatinine [Mass/volume] in Serum or Plasma 1.6 mg/dl 0.7 - 1.2 Urea/Creatinine [Mass Ratio] in Serum or Plasma 9.2 6 - 26 Sodium [Moles/volume] in Serum or Plasma 136 mmol/L 135 - 151 Potassium [Moles/volume] in Serum or Plasma 4.0 mmol/L 3.5 - 5.0 Chloride [Moles/volume] in Serum or Plasma 102 mmol/L 98 - 113 Carbon dioxide, total [Moles/volume] in Venous blood 25 mmol/L 23 - 34 Protein [Mass/volume] in Serum or Plasma 6.3 gm/dl 6.2 - 8.0 Albumin [Mass/volume] in Serum or Plasma 4.2 gm/dl 3.5 - 5.2 Globulin [Mass/volume] in Serum 2.1 gm/dl 2-4 Albumin/Globulin [Mass Ratio] in Serum or Plasma 2.0 1.1 -2.4 Alanine aminotransferase [Enzymatic activity/volume] in Serum or Plasma 34 U/L 0 - 55 Alkaline phosphatase [Enzymatic activity/volume] in Serum or Plasma 74 U/L 53 - 128 Bilirubin.total [Mass/volume] in Serum or Plasma 0.95 mg/dl 0.10 - 1.20 Calcium [Mass/volume] in Serum or Plasma 9.19 mg/dl 8.30 - 10.60 [facility] - 04/21/16 15:06 Potassium 4.3 MMOLL 3.5-5.1 Osmo Calculated 282 Sodium 141 MMOLL 136-145 Calcium 9.3 MG/DL 8.5-10.1 Chloride 105 MMOLL 98-107 CO2 28.8 MMOLL 21-32 Creatinine 1.29 MG/DL 0.6-1.3 Glucose 90 MG/DL 74-106 BUN 15 MG/DL 7-18 Encounters ACCT No. Visit Date/Time Discharge Status Pt. Type Provider Facility Loc./Unit Complaint [id number] 08/05/2017 05:36:00 08/05/2017 10:47:00 DIS Outpatient BERNA ARTEAGA DO [facility] PREOP FOREIGN BODY LEFT CHEST [id number] 05/27/2017 16:24:00 05/27/2017 23:59:59 CLS Outpatient KARLEE RODRIGUEZ MD [facility] RAD L RENAL STONE [id number] 12/12/2016 08:42:00 12/12/2016 23:59:59 CLS Outpatient SATURNINO IYER MD [facility] CARD I25.10 CAD [id number] 11/19/2016 16:06:00 11/19/2016 23:59:59 CLS Outpatient KARLEE RODRIGUEZ MD [facility] RAD RENAL STONES [id number] 09/23/2016 08:07:00 09/23/2016 23:59:59 CLS Outpatient MEDHAT RESTREPO APRN [facility] RAD LOW BACK PAIN [id number] 09/12/2016 12:01:00 09/12/2016 23:59:59 CLS Outpatient AYDE JOHANSEN MD [facility] RAD ANESTHESIA OF SKIN, PAIN IN RT HIP [id number] 05/08/2016 15:23:00 05/08/2016 23:59:59 CLS Outpatient KARLEE RODRIGUEZ MD [facility] RAD LT RENAL STONE [id number] 05/07/2016 13:35:00 05/07/2016 23:59:59 CLS Outpatient KARLEE RODRIGUEZ MD [facility] RAD LT URETERAL STONE [id number] 08/14/2015 16:44:00 08/14/2015 23:59:59 CLS Outpatient MEDHAT RESTREPO APRN [facility] RAD PAIN R SHOULDER [id number] 06/14/2015 16:04:00 06/14/2015 23:59:59 CLS Outpatient AYDE JOHANSEN MD [facility] RAD INTERCOSTAL PAIN, SPINAL ENTHOSPATHY THORACIC REGIO [id number] 01/18/2015 16:31:00 01/18/2015 23:59:59 CLS Outpatient AYDE JOHANSEN MD [facility] RAD SHOULDER PAIN [id number] 01/17/2015 10:25:00 01/17/2015 23:59:59 CLS Outpatient AYDE JOHANSEN MD [facility] RAD SHOULDER PAIN [id number] 07/13/2014 10:39:00 07/13/2014 23:59:59 CLS Outpatient AYDE JOHANSEN MD [facility] RAD CEREBRAL ARTERY OCCLUSION [id number] 04/19/2014 07:20:00 04/19/2014 23:59:59 CLS Outpatient SATURNINO IYER MD [facility] CARD CVA,CAD [id number] 02/02/2013 06:46:00 02/02/2013 13:10:00 DIS Outpatient SATURNINO IYER MD [facility] CATH CHEST PAIN, ABNORMAL STRESS AND EKG,HTN,HLP [id number] 08/07/2017 12:00:00 PEN Preadmit BERNA ARTEAGA DO [facility] SDC FOREIGN BODY LEFT CHEST [id number] 01/17/2015 10:24:00 Document Registration [id number] 01/17/2015 10:24:00 Document Registration [id number] 01/17/2015 10:24:00 Document Registration [id number] 09/13/2012 13:54:00 Document Registration [id number] 07/06/2012 14:53:00 Document Registration [id number] 06/30/2012 08:21:00 Document Registration [id number] 05/04/2012 14:25:00 Document Registration [id number] 03/14/2010 10:31:00 Document Registration [id number] 12/08/2009 00:00:00 Document Registration [id number] 09/09/2009 13:15:00 Document Registration [id number] 04/21/2016 13:38:17 04/21/2016 13:38:17 CAN Preadmit [id number] 04/17/2016 15:39:00 04/18/2016 15:41:00 DIS Outpatient [facility] INPT NKI, left ureteral calculus. [id number] 04/21/2016 14:40:00 04/21/2016 14:40:00 DIS Outpatient KESHIA WINN MD [facility] GFP [id number] 04/21/2016 14:00:00 04/21/2016 14:00:00 DIS Outpatient KESHIA WINN MD [facility] GFP [id number] 04/16/2016 04:20:00 04/17/2016 11:45:00 DIS Inpatient KESHIA WINN MD [facility] NUR1 [id number] 04/16/2016 04:18:00 04/16/2016 08:39:00 DIS Outpatient KESHIA WINN MD [facility] ER [id number] 04/16/2016 04:20:00 04/16/2016 04:20:00 DIS Outpatient EMILE MORIN [id number] 04/16/2016 02:14:00 04/16/2016 04:20:00 DIS Emergency KESHIA WINN MD [facility] ER [id number] 04/21/2016 14:40:00 Document Registration [id number] 04/21/2016 14:00:00 Document Registration [id number] 04/16/2016 04:20:00 Document Registration [id number] 04/16/2016 04:20:00 Document Registration
[2017-08-07] MEDS ORDERED: LIDOCAINE 1% INJ 20 ML (XYLOCAINE) VIAL ONE (10:35)
[2017-08-07] MEDS ORDERED: BUPIVACAINE 0.5% 30 ML (SENSORCAINE) VIAL ONE (10:35)
[2017-08-07 10:55] VITALS: BP 167/79
[2017-08-07] MEDS ORDERED: MIDAZOLAM 2 MG/2 ML (VERSED) VIAL ONE (10:56)
[2017-08-07] MEDS ORDERED: proPOfol 200 MG/20 ML (DIPRIVAN) VIAL IV ONE (10:56)
[2017-08-07] MEDS ORDERED: LIDOCAINE PF 2% 5 ML (XYLOCAINE) VIAL ONE (10:56)
--- NOTE | 2017-08-07 11:16 | Progress Note-Pre Operative ---
Pre-Operative Progress Note H&P Reviewed The H&P was reviewed, patient examined and no changes noted. Date Seen by Provider: Aug 07, 2017 Time Seen by Provider: 11:16 Date H&P Reviewed: Aug 07, 2017 Time H&P Reviewed: 11:16 Pre-Operative Diagnosis: foreign body left chest BERNA ARTEAGA DO Aug 07, 2017 11:16
--- NOTE | 2017-08-07 11:34 | Progress Note-Post Operative ---
Post-Operative Progess Note Surgeon (s)/Exhibition Organiser (s) Surgeon BERNA ARTEAGA DO Exhibition Organiser: na Pre-Operative Diagnosis foreign body left chest Post-Operative Diagnosis same Procedure & Operative Findings Date of Procedure 08/07/17 Procedure Performed/Findings removal foreign body left chest Anesthesia Type mac Estimated Blood Loss Estimated blood loss (mL): min Specimens/Packing Specimens Removed na BERNA ARTEAGA DO Aug 07, 2017 11:34
--- NOTE | 2017-08-07 11:36 | Discharge Inst-Simple/Standard ---
Discharge Inst-Standard Patient Instructions/Follow Up Plan of Care/Instructions/FU: 2 weeks Cosmo Activity as Tolerated: Yes Discharge Diet: Regular Diet Other Inst to Patient Follow up Appt: Make appointment for 2 week. Instructions: . No strenuous activity. Keep clean and dry. Skin/Wound Care: May remove bandages in 24 hours. You need to leave the white strips over incision on they will fall off on their own. Symptoms to Report: Appetite Changes, Extremity Discoloration, Numbness/Tingling, Swelling Increased , Bleeding Excessive, Eyesight Changes, Pain Increased, Urine Color Change, Constipation(Persistent), Fever over 101 degree F, Pain/Pressure in chest, Urinating Difficulty, Cough Up/Vomit Blood, Heart Beat Irreg/Pounding, Pain/ Pressure in jaw, Vaginal Bleeding Increase, Cramps in feet or legs, Lightheadedness, Pain/Pressure in shoulder, Diarrhea(Persistent), Memory Changes Suddenly, Questions/Concerns, Weight gain consecutive days, Dizziness/ Fainting, Nausea/Vomiting, Shortness of Breath, Weight gain over 2 pounds If questions or concerns contact your physician Or seek help at emergency department. BERNA ARTEAGA DO Aug 07, 2017 11:36
[2017-08-07 12:25] VITALS: BP 127/75
[2017-08-07 12:55] VITALS: BP 136/63
[2017-08-07 13:25] VITALS: BP 133/74
[2017-08-07 13:45] VITALS: BP 133/74
[2017-08-07] MEDS ORDERED: LACTATED RINGERS 1,000 ML IV PRN (14:32)
--- NOTE | 2017-08-08 04:59 | OPERATIVE REPORT ---
DATE OF SERVICE: 08/07/2017 PREOPERATIVE DIAGNOSIS: Foreign body, left chest. POSTOPERATIVE DIAGNOSIS: Foreign body, left chest. PROCEDURE: Removal of foreign body, left chest. SURGEON: Berna Wilburn DO ANESTHESIA: MAC with local. ESTIMATED BLOOD LOSS: Minimal. COMPLICATIONS: None. INDICATIONS: The patient is a 77-year-old male with a medical office asst in left chest, the battery is and there is no longer need for the device. The patient wishes to have it removed. He understands risks and benefits of procedure and wished to proceed with procedure. Consent was signed in the chart. DESCRIPTION OF PROCEDURE: The patient was taken to the operating suite, was prepped and draped in sterile fashion. Surgical pause was performed. Local anesthetic was infiltrated into the area. A #15 blade scalpel was used to make a skin incision and a hemostat used to dissect around the device and then grasped and removed. The device was removed in its entirety. The hemostasis had been achieved. The skin was then closed using 4-0 Vicryl in a subcuticular fashion. The area was washed and dried. Mastisol and Steri-Strips were applied. Sterile bandages were applied. The patient tolerated procedure well without any complications and taken to recovery room in stable condition. Job ID: [id number] DocumentID: [id number] Dictated Date: 08/07/2017 21:28:55 Supervisory Geographer Date: 08/08/2017 03:18:20 Dictated By: BERNA WILBURN DO
== END 2017-08-07 13:45 | disposition home or self-care (01) ==
LOC: SDC 10:19
PROVIDERS: ATTEND Surgery
DX: Z95.818 Presence of other cardiac implants and grafts (principal); I10 Essential (primary) hypertension; I48.91 Unspecified atrial fibrillation; K21.9 Gastro-esophageal reflux disease without esophagitis; I69.398 Other sequelae of cerebral infarction; R41.3 Other amnesia; Z79.02 Long term (current) use of antithrombotics/antiplatelets; Z79.899 Other long term (current) drug therapy
CPT/HCPCS: 87081

== ENCOUNTER → 2017-09-07 | Outpatient (CLI) | payer MEDICARE ==
--- NOTE | 2017-09-07 12:08 | Diagnostic Imaging Report ---
INDICATION: Decreased range of motion in the left shoulder. TIME OF EXAM: 10:18 AM FINDINGS: Two views of the left shoulder were obtained. Glenohumeral and acromioclavicular alignment are normal. The acromiohumeral space is normal. No fracture or dislocation is detected. IMPRESSION: No acute bony abnormality is detected. Dictated by: Dictated on workstation # [id number]
== END ==
LOC: RAD 09:52
DX: M25.512 Pain in left shoulder (principal)
CPT/HCPCS: 73030

== ENCOUNTER → 2017-09-10 | Outpatient (CLI) | payer MEDICARE ==
--- NOTE | 2017-09-10 15:44 | Diagnostic Imaging Report ---
PROCEDURE: MRI left upper extremity without contrast. TECHNIQUE: Multiplanar, multisequence MR imaging of the left shoulder was performed without contrast. COMPARISON: Left shoulder MRI from 01/18/2015. INDICATION: Left shoulder pain. FINDINGS: Rotator cuff: Supraspinatus tendinopathy with superimposed low-grade bursal-sided fraying of the anterior insertional fibers. Infraspinatus, teres minor, and subscapularis are normal. No rotator cuff muscle atrophy. Glenoid labrum: By non-arthrogram imaging, the glenoid labrum appears intact. No para-labral cyst. Long head of biceps: Long head of biceps is normally positioned within the bicipital groove. The intracapsular segment is intact. Bones and cartilage: Humeral head is normal in morphology without fracture or focal osseous lesion. Partial-thickness chondral loss in the inferior aspect of the glenohumeral joint is degenerative in nature. Moderate hypertrophic degenerative changes of the acromioclavicular joint including inferior-projecting osteophytes along with joint fluid and/or synovitis. There is an inferior-projecting subacromial spur present as well. Soft tissues: No glenohumeral joint effusion. No MRI findings to suggest adhesive capsulitis. Fluid within the subacromial and subdeltoid space has band-like foci within it, indicative of bursitis. IMPRESSION: 1. Supraspinatus tendinopathy with superimposed low-grade partial-thickness tearing/fraying of the bursal fibers. 2. Hypertrophic degenerative changes of the acromioclavicular joint including inferior-projecting osteophytes into the subacromial space which could result in subacromial impingement. 3. Subacromial and subdeltoid bursitis. Dictated by: Dictated on workstation # [id number]
== END ==
LOC: RAD 14:05
DX: M75.52 Bursitis of left shoulder (principal); M19.012 Primary osteoarthritis, left shoulder; M75.22 Bicipital tendinitis, left shoulder
CPT/HCPCS: 73221

== ENCOUNTER → 2018-04-05 | Outpatient (CLI) | payer MEDICARE ==
[~2018-04-05] MED LIST changes: -AMLO10TA2 PO; +AMLO10TA6 PO; +TRAZ-189 PO; -TRAZ-28 PO
--- NOTE | 2018-04-05 18:03 | Diagnostic Imaging Report ---
PROCEDURE: CT head without contrast. TECHNIQUE: Multiple contiguous axial images were obtained through the brain without the use of intravenous contrast. INDICATION: Stroke, left-sided weakness and tingling. COMPARISON: CT dated January 15, 2010 and MRI dated July 13, 2014. FINDINGS: Age-appropriate volume loss. No intracranial hemorrhage. No intracranial mass, mass effect, midline shift, herniation, hydrocephalus, or extra-axial fluid collection. Periventricular and subcortical white matter hypodensities are present, most consistent with mild chronic small vessel white matter ischemic disease. No CT evidence of an acute ischemic infarction. The partially visualized paranasal sinuses are grossly clear. The calvarium and extracalvarial soft tissues are unremarkable. IMPRESSION: No acute intracranial abnormality. Age-appropriate volume loss with associated mild background chronic small vessel white matter ischemic disease. If there remains clinical concern for underlying occult infarction, further evaluation with MRI of the brain could be obtained. Dictated by: Dictated on workstation # [id number]
== END ==
LOC: RAD 16:54
PROVIDERS: ATTEND Nurse Practitioner Family
DX: I67.82 Cerebral ischemia (principal); G31.9 Degenerative disease of nervous system, unspecified; R90.82 White matter disease, unspecified; Z86.73 Personal history of transient ischemic attack (TIA), and cerebral infarction without residual deficits
CPT/HCPCS: 70450

== ENCOUNTER → 2018-04-08 | Outpatient (CLI) | payer MEDICARE ==
--- NOTE | 2018-04-08 16:45 | Diagnostic Imaging Report ---
PROCEDURE: MR imaging of the brain without contrast. TECHNIQUE: Multiplanar, multisequence MR imaging of the brain was performed without contrast. INDICATION: Left-sided weakness. History of stroke. COMPARISON: CT of head without contrast 04/05/2018. FINDINGS: Moderate nonspecific T2 hyperintensities in the supratentorial white matter, presumed leukoaraiosis. Moderate generalized cerebral and cerebellar parenchymal volume loss. No restricted water diffusion or hemosiderin deposition. Normal morphology including the major midline structures, sella, posterior fossa and cerebellar pontine angle. Normal intracranial flow voids. No hydrocephalus or extra-axial fluid collections. The orbits are unremarkable on this nondedicated exam. Mild mucosal thickening in the maxillary sinuses. The mastoids are clear. Normal bone marrow signal. IMPRESSION: 1. Age-appropriate MRI of the brain. No acute intracranial MRI findings. 2. Mild mucosal thickening in the maxillary sinuses without air-fluid levels. Dictated by: Dictated on workstation # [id number]
== END ==
LOC: RAD 14:06
PROVIDERS: ATTEND Nurse Practitioner Family
DX: J34.89 Other specified disorders of nose and nasal sinuses (principal); R53.1 Weakness; R20.2 Paresthesia of skin; R20.0 Anesthesia of skin; R53.83 Other fatigue; R41.89 Other symptoms and signs involving cognitive functions and awareness; Z86.73 Personal history of transient ischemic attack (TIA), and cerebral infarction without residual deficits
CPT/HCPCS: 70551

== ENCOUNTER → 2018-04-15 | Outpatient (CLI) | payer MEDICARE ==
--- NOTE | 2018-04-15 16:02 | Diagnostic Imaging Report ---
Clinical indication: Patient with posterior left-sided pain. Exam: X-ray of the abdomen with 2 supine views. Comparison: X-ray of the abdomen dated 05/27/2017. Findings: Metallic zipper is seen overlying the right pelvis and a ring/ jewelry is seen overlying the lower chest in the region of the left hand. There is a nonobstructed bowel gas pattern. There is no evidence of abdominal free air. Nonspecific mildly air filled loops of small bowel overlying the left abdomen. There is a small to moderate amount of stool overlying the right colon and transverse colon. There are no focal calcifications overlying the expected regions/ pathways of both kidneys, ureters, and bladder regions. Surgical clips are seen overlying the right upper quadrant which could be related to cholecystectomy changes. There are moderately hypertrophic spurs seen throughout the lumbar spine. Impression: There is no radiographic evidence for acute abdominal/ pelvic process or urinary tract stones. Dictated by: Dictated on workstation # [id number]
== END ==
LOC: RAD 15:17
PROVIDERS: ATTEND Nurse Practitioner Family
DX: R10.12 Left upper quadrant pain (principal)
CPT/HCPCS: 74018

== ENCOUNTER → 2018-04-20 | Outpatient (CLI) | payer MEDICARE ==
--- NOTE | 2018-04-20 15:39 | Diagnostic Imaging Report ---
INDICATION: Left upper quadrant pain. TECHNIQUE: CT of the abdomen and pelvis obtained without IV contrast and compared to 05/08/2016. FINDINGS: The visualized portions of the lung bases are clear, except for some mild dependent atelectatic change or scarring in the right base. There is elevation of the left hemidiaphragm with focal eventration. The liver shows no focal lesion. Patient has had previous cholecystectomy. The spleen is not enlarged and shows no focal lesions. The adrenals and pancreas appear normal. The kidneys bilaterally show no hydronephrosis. There is a nonocclusive stone in the midpole of the left kidney measuring about 6 mm, unchanged compared to previous study. There is a cyst in the lower pole of the left kidney, measuring about 2.9 cm, also unchanged. There is a parapelvic cyst in the upper pole of the right kidney as well as a cortical cyst in the upper pole of the right kidney, appearing similar to the previous study. There is no retroperitoneal mass or adenopathy. There is no ascites or abnormal fluid collection. Visualized bowel loops show no sign of obstruction or acute inflammatory change. There are uncomplicated sigmoid diverticuli. There is diffuse facet degenerative change throughout the lumbar spine. IMPRESSION: Unchanged elevated left hemidiaphragm with focal eventration. No abdominal mass or abnormal fluid collection. Stable stone in left kidney in the calyceal region without hydronephrosis or obstruction. Stable bilateral renal cysts. Uncomplicated sigmoid diverticuli. No overt acute abnormality. Dictated by: Dictated on workstation # [id number]
== END ==
LOC: RAD 13:50
PROVIDERS: ATTEND Nurse Practitioner Family
DX: J98.6 Disorders of diaphragm (principal); N20.0 Calculus of kidney; N28.1 Cyst of kidney, acquired; M54.5 Low back pain; Z90.49 Acquired absence of other specified parts of digestive tract; Z87.442 Personal history of urinary calculi
CPT/HCPCS: 74176

== ENCOUNTER → 2018-04-26 | Outpatient (CLI) | payer MEDICARE ==
--- NOTE | 2018-04-26 15:53 | Diagnostic Imaging Report ---
INDICATION: Nephrolithiasis EXAM: KUB at 3:21 PM FINDINGS: There is a 6 mm curvilinear calcification projecting over the lateral margin of the left kidney. There is a 3 mm oval calcification projecting over the left renal pelvis. The right kidney is largely obscured by fecal material. IMPRESSION: Two calcifications projecting over the left kidney, suspicious for calculi. Dictated by: Dictated on workstation # [id number]
== END ==
LOC: RAD 14:48
PROVIDERS: ATTEND Urology
DX: N28.89 Other specified disorders of kidney and ureter (principal); N20.0 Calculus of kidney
CPT/HCPCS: 74018

== ENCOUNTER → 2018-04-28 | Outpatient (CLI) | payer MEDICARE ==
--- NOTE | 2018-04-28 11:31 | Diagnostic Imaging Report ---
Thoracic spine. INDICATION: Back pain. AP, lateral and swimmer's views were obtained. FINDINGS: The lateral view shows vertebral body heights and alignment to be generally within normal limits and similar to the chest exam of 06/14/2015. There does appear to be at least moderate degenerative disease of the T7-T8, T8-T9 disc spaces. This has not progressed significantly since the prior exam, however. The other intervertebral spaces are fairly well-maintained. There is no fracture or acute bony abnormality evident. There is no sign of a paraspinal mass. IMPRESSION: 1. There is no evidence for an acute bony abnormality. 2. If clinical concern regarding an underlying abnormality persists, then MRI would be recommended for further study. Dictated by: Dictated on workstation # [id number]
--- NOTE | 2018-04-28 11:49 | Diagnostic Imaging Report ---
EXAMINATION: Lumbar spine at 11:22 a.m. INDICATION: Back pain. AP, lateral, and spot lateral views were obtained. FINDINGS: The lateral view reveals that there is narrowing of the disc space at L3-4 and that there is minimal retrolisthesis of L3 with respect to L4. These findings are similar to the prior MRI lumbar spine exam of 09/23/2016. The other intervertebral spaces are fairly well maintained. There is no fracture or acute bony abnormality evident. There is no sign of a paraspinal mass. There are two calcifications overlying the left kidney. The larger measures approximately 6.6 mm in size while the other measures only 3.[address] abdomen/pelvis exam of 04/20/2018 did note a single 6 mm calculus within the left kidney. There is mild symmetrical sclerosis of the sacroiliac joints. IMPRESSION: 1. There is no evidence for an acute bony abnormality. 2. There is degenerative disc and bony disease primarily at L3-4. If there is clinical concern regarding spinal stenosis or nerve root encroachment at this level, then repeat MRI lumbar spine exam should be obtained. 3. There are now two calcific densities overlying the left kidney. If further evaluation is desired, then repeat CT abdomen exam should be obtained. Dictated by: Dictated on workstation # [id number]
== END ==
LOC: RAD 10:52
DX: M51.36 Other intervertebral disc degeneration, lumbar region (principal); M89.9 Disorder of bone, unspecified; N28.89 Other specified disorders of kidney and ureter; S23.3XXD Sprain of ligaments of thoracic spine, subsequent encounter
CPT/HCPCS: 72070; 72100

== ENCOUNTER → 2018-05-01 | Outpatient (CLI) | payer MEDICARE ==
--- NOTE | 2018-05-01 11:21 | Diagnostic Imaging Report ---
PROCEDURE: MRI lumbar spine. TECHNIQUE: Multiplanar, multisequence MRI of the lumbar spine was performed without contrast. INDICATION: Low back pain. Left leg numbness. COMPARISON: Lumbar spine radiographs 04/28/2018. FINDINGS: There are five lumbar type vertebral bodies. Mild right apex lumbar curvature. Alignment is otherwise unremarkable. Vertebral body heights are preserved. Moderate degenerative endplate changes greatest at L3-L4. Bone marrow signal is otherwise unremarkable. No abnormal signal the conus which terminates at L1. Normal morphology of the cauda equina. No acute findings in the visualized abdomen or pelvis. L1-L2: No spinal canal, lateral recess or neural foraminal narrowing. Mild facet arthropathy. L2-L3: No spinal canal, lateral recess or neural foraminal narrowing. Mild facet arthropathy. L3-L4: Posterior disc osteophyte complex, ligamentous hypertrophy and facet arthropathy result in moderate bilateral lateral recess and mild spinal canal narrowing. There is also advanced bilateral neural foraminal narrowing. L4-L5: Posterior disc osteophyte complex, ligamentous hypertrophy and facet arthropathy result in moderate spinal canal and bilateral lateral recess narrowing. There is moderate left and advanced right neural foraminal narrowing. L5-S1: Moderate facet arthropathy. No substantial spinal canal or lateral recess narrowing. There is moderate bilateral neural foraminal narrowing. IMPRESSION: 1. 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 2. Scattered moderate and advanced neural foraminal narrowing detailed above. 3. No acute osseous findings. Dictated by: Dictated on workstation # [id number]
== END ==
LOC: RAD 10:10
DX: M48.061 Spinal stenosis, lumbar region without neurogenic claudication (principal); M47.22 Other spondylosis with radiculopathy, cervical region; M99.73 Connective tissue and disc stenosis of intervertebral foramina of lumbar region; M46.87 Other specified inflammatory spondylopathies, lumbosacral region; M43.8X6 Other specified deforming dorsopathies, lumbar region
CPT/HCPCS: 72148

== ENCOUNTER → 2018-10-21 | Outpatient (CLI) | payer MEDICARE ==
[~2018-10-21] MED LIST changes: -AMLO10TA6 PO; +AMLO10TA7 PO
== END ==
LOC: CARD 14:02
PROVIDERS: ATTEND Internal Medicine Cardiovascular Disease
DX: R07.89 Other chest pain (principal); I25.10 Atherosclerotic heart disease of native coronary artery without angina pectoris; I63.9 Cerebral infarction, unspecified; I10 Essential (primary) hypertension; E78.5 Hyperlipidemia, unspecified
CPT/HCPCS: 93306

== ENCOUNTER → 2018-10-27 | Outpatient (CLI) | payer MEDICARE ==
[~2018-10-27] VITALS: Ht 170.2 cm; Wt 72.6 kg
[~2018-10-27] MED LIST changes: +CATHETER FLUSH 10 ML SYR IV PRN; +REGADENOSON 0.4 MG/5 ML SYR (LEXISCAN) IV ONE
[2018-10-27 09:10] VITALS: BP 130/73
[2018-10-27 09:11] VITALS: BP 117/70
--- NOTE | 2018-10-27 15:19 | STRESS TEST ---
DATE OF SERVICE: 10/27/2018 LEXISCAN MYOVIEW STRESS TEST REFERRING PHYSICIAN: Dr. Leiva. Baseline heart rate is 47, baseline blood pressure 130/73. Baseline EKG is sinus rhythm with no ischemic changes. In summary, the patient was injected with 10.61 mCi of technetium-99 Myoview and the resting images were obtained. Then, the patient received 0.4 mg of Lexiscan followed by 29.6 mCi of technetium-99 Myoview. Throughout the test, there were no EKG changes. The resting and stress images were reviewed and compared in the short axis, horizontal long axis, and vertical long axis views. Review of the images showed good radiotracer uptake with no significant ischemia or infarction. SSS is 4, SDS 2, TID value 0.99. On the gated images, the left ventricle appeared to be normal size with normal contractility. Calculated ejection fraction 62%. CONCLUSION: 1. The patient tolerated Lexiscan well. 2. No ischemia or infarction on SPECT images. 3. Normal left ventricular size with normal contractility. Calculated ejection fraction 62%. Job ID: [id number] DocumentID: [id number] Dictated Date: 10/27/2018 15:03:20 Crm System Administrator Date: 10/27/2018 15:19:03 Dictated By: SATURNINO IYER MD
== END ==
LOC: CARD 07:20
PROVIDERS: ATTEND Internal Medicine Cardiovascular Disease
DX: R07.89 Other chest pain (principal); I25.10 Atherosclerotic heart disease of native coronary artery without angina pectoris; I10 Essential (primary) hypertension; E78.5 Hyperlipidemia, unspecified; I63.9 Cerebral infarction, unspecified
CPT/HCPCS: 78452; 93017

== ENCOUNTER → 2019-10-18 | Outpatient (CLI) | payer MEDICARE ==
[~2019-10-18] MED LIST changes: -CATHETER FLUSH 10 ML SYR IV PRN; -METO-387 PO; +MTP25TSR PO; +OMEP20CA18 PO; -REGADENOSON 0.4 MG/5 ML SYR (LEXISCAN) IV ONE; -TRAZ-189 PO
--- NOTE | 2019-10-18 12:00 | Diagnostic Imaging Report ---
CLINICAL INDICATION: Patient with chest pain x2 weeks. No other symptoms. EXAM: Chest x-ray PA and lateral views. COMPARISONS: Chest x-ray dated 06/14/2015. FINDINGS: Lungs/pleura: Stable elevation of the left hemidiaphragm and left basilar scarring. Lungs are otherwise clear. There is no pneumothorax. There is no pleural effusion. Mediastinum: Unremarkable. Pulmonary vasculature: Unremarkable. Heart: Unremarkable. Bones/extrathoracic soft tissue: There are hypertrophic spurs involving the thoracic spine. IMPRESSION: Stable chest x-ray exam with no interval radiographic evidence of acute cardiopulmonary process. Dictated by: Dictated on workstation # [id number]
--- NOTE | 2019-10-18 12:43 | Diagnostic Imaging Report ---
PROCEDURE: CT chest without contrast. TECHNIQUE: Multiple contiguous axial images were obtained through the chest without the use of intravenous contrast. Auto Exposure Controls were utilized during the CT exam to meet ALARA standards for radiation dose reduction. INDICATION: Chest/intercostal pain. COMPARISON: CT chest performed on 06/30/2012 and chest radiographs also performed today. FINDINGS: Absence of intravenous contrast decreases sensitivity for detection of lymphadenopathy and vascular pathology. TRACHEA AND MAIN BRONCHI: Patent without evidence of tracheal or endobronchial lesion. LUNGS AND PLEURA: Mild linear scarring/subsegmental atelectasis is demonstrated in both lungs. The lungs are otherwise clear, without focal consolidation or pulmonary mass. No pleural effusion or pneumothorax. MEDIASTINUM AND JARRET: The visualized thyroid gland is unremarkable. There are calcified left hilar lymph nodes, compatible with prior granulomatous disease. There is no mediastinal or hilar lymphadenopathy. Esophagus is nondistended. HEART AND VESSELS: Heart is normal in size. No pericardial effusion. Atherosclerotic calcification involves the aorta and its branches, including the coronary arteries. Thoracic aorta is nonaneurysmal. DIAPHRAGM AND UPPER ABDOMEN: There is mild elevation of the left hemidiaphragm, which is a chronic finding. The patient is status post cholecystectomy. There is a small hiatal hernia. There is a partially visualized left upper pole renal cyst. No acute abnormality is demonstrated in the upper abdomen. There is a stable small circumscribed soft tissue attenuation mass adjacent to the proximal descending colon, presumably an accessory spleen/splenule. CHEST WALL: Mild bilateral gynecomastia. No focal abnormality is demonstrated in the chest wall and no discrete findings involving the intercostal spaces. BONES: Multilevel degenerative changes involve the spine. There are degenerative changes in both shoulder joints, right greater than left. No acute osseous abnormality. IMPRESSION: No acute cardiopulmonary process. There are no findings to account for the patient's symptoms. Chronic and incidental findings are detailed above. Dictated by: Dictated on workstation # [id number]
== END ==
LOC: RAD 11:42
DX: M47.819 Spondylosis without myelopathy or radiculopathy, site unspecified (principal); M19.011 Primary osteoarthritis, right shoulder; M19.012 Primary osteoarthritis, left shoulder; N62 Hypertrophy of breast; Q79.1 Other congenital malformations of diaphragm; R07.82 Intercostal pain; K44.9 Diaphragmatic hernia without obstruction or gangrene; N28.1 Cyst of kidney, acquired; I70.0 Atherosclerosis of aorta; I89.8 Other specified noninfective disorders of lymphatic vessels and lymph nodes; Z90.49 Acquired absence of other specified parts of digestive tract
CPT/HCPCS: 71046; 71250

== ENCOUNTER → 2021-07-09 | Outpatient (CLI) | payer MEDICARE ==
[~2021-07-09] MED LIST changes: +AMLO-251 PO; -AMLO10TA7 PO; +EZET-57 PO; -EZET1TAB65 PO
== END ==
LOC: CARD 09:30
PROVIDERS: ATTEND Physician Assistant
DX: I11.9 Hypertensive heart disease without heart failure (principal); I34.8 Other nonrheumatic mitral valve disorders; I25.10 Atherosclerotic heart disease of native coronary artery without angina pectoris
CPT/HCPCS: 93306

== ENCOUNTER → 2021-09-19 | Outpatient (CLI) | payer MEDICARE ==
[~2021-09-19] MED LIST changes: +HOLD METFORMIN - RECEIVED CONTRAST 20 ML VIAL IV SCH; +IOHEXOL 350 MG/ML 100 ML (OMNIPAQUE 350) VIAL IV ONE; +NS 100 ML (IVPB) BAG IV ONE
[2021-09-19 14:02] LABS: CREATININE SERUM 1.32 MG/DL (0.60-1.30)
--- NOTE | 2021-09-19 14:52 | Diagnostic Imaging Report ---
INDICATION: Abdominal pain for two months. EXAMINATION: CT abdomen and pelvis with contrast, 09/19/2021. COMPARISON: 04/20/2018. FINDINGS: The lung bases demonstrate scar or atelectasis. There is a small hiatal hernia. There is elevation of the left hemidiaphragm similar to previous imaging. The liver and spleen are unremarkable. The pancreas is atrophied but otherwise unremarkable. There is evidence of previous cholecystectomy. The adrenal glands appear normal. There is a simple appearing cyst along the inferior pole of the left kidney with nonobstructive stones also noted. No hydronephrosis. There are large cystic lesions within the right kidney simple in appearance and similar to previous examination. There is mild fat stranding surrounding the proximal sigmoid colon with diverticular disease noted. Findings consistent with acute diverticulitis. There is no adjacent free air or fluid. No abscess formation appreciated. The appendix is not seen but there is no focal inflammatory change in the right lower quadrant. There is atherosclerotic disease. No ascites or free air. No lymphadenopathy. There is a fat-containing inguinal hernia on the left. Degenerative findings noted within the osseous structures with no acute osseous abnormality appreciated. IMPRESSION: 1. Findings consistent with acute diverticulitis about the proximal sigmoid colon with no free air or abscess formation. 2. Simple appearing cystic changes within both kidneys similar to previous imaging. Other incidental findings as discussed above. Dictated by: Dictated on workstation # [id number]
== END ==
LOC: RAD 13:30
DX: K57.30 Diverticulosis of large intestine without perforation or abscess without bleeding (principal); N20.0 Calculus of kidney; N28.1 Cyst of kidney, acquired
CPT/HCPCS: 36415; 74177; 82565; 84520

== ENCOUNTER 2021-10-23 11:21 | Outpatient (CLI) | payer MEDICARE ==
[~2021-10-23] VITALS: Ht 170.2 cm; Wt 75.3 kg
[~2021-10-23 11:21] MED LIST changes: -HOLD METFORMIN - RECEIVED CONTRAST 20 ML VIAL IV SCH; -IOHEXOL 350 MG/ML 100 ML (OMNIPAQUE 350) VIAL IV ONE; -NS 100 ML (IVPB) BAG IV ONE
[2021-10-23] MEDS ORDERED: LOSA25TA41 PO (12:05)
[2021-10-23] MEDS ORDERED: ASPI-999 PO (12:05)
[2021-10-23] MEDS ORDERED: TMSL.4C PO (12:05)
[2021-10-23] MEDS ORDERED: ROSU10TA28 PO (12:05)
== END 2021-10-23 12:09 ==
LOC: PREOP 11:21
PROVIDERS: ATTEND Surgery
DX: Z01.818 Encounter for other preprocedural examination (principal)

== ENCOUNTER 2021-10-31 08:28 | Day surgery (SDC) | payer MEDICARE ==
[2021-10-31] VITALS (11 sets, daily range): BP systolic 102–134; BP diastolic 53–72
[~2021-10-31] VITALS: Ht 170.2 cm; Wt 75.3 kg
[~2021-10-31 08:28] MED LIST changes: +ASPI-999 PO; +LOSA25TA41 PO; +ROSU10TA28 PO; +TMSL.4C PO
[2021-10-31] MEDS ORDERED: ceFAZolin 2 GM IV Premixed 50 ML IV ONE (08:45)
[2021-10-31] MEDS: LACTATED RINGERS 1,000 ML IV PRN ×2 (08:55→10:45)
--- NOTE | 2021-10-31 09:02 | Progress Note-Pre Operative ---
Pre-Operative Progress Note H&P Reviewed The H&P was reviewed, patient examined and no changes noted. Date Seen by Provider: Oct 31, 2021 Time Seen by Provider: 09:02 Date H&P Reviewed: Oct 31, 2021 Time H&P Reviewed: 09:02 Pre-Operative Diagnosis: left inguinal hernia BERNA ARTEAGA DO Oct 31, 2021 09:02
[2021-10-31] MEDS ORDERED: LIDOCAINE/EPI 2% 1:100,00 (XYLOCAINE) 20 ML VIAL ONE (09:08)
[2021-10-31] MEDS ORDERED: proPOfol 200 MG/20 ML (DIPRIVAN) VIAL IV ONE (09:56)
[2021-10-31] MEDS ORDERED: LIDOCAINE PF 2% 5 ML (XYLOCAINE) VIAL ONE (09:56)
[2021-10-31] MEDS ORDERED: ONDANSETRON 4 MG/2 ML (SDV) Z0FRAN ONE (09:56)
[2021-10-31] MEDS ORDERED: fentaNYL INJ 100 MCG/2 ML AMP ONE (09:56)
[2021-10-31] MEDS ORDERED: GLYCOPYRROLATE 0.2 MG/ML (ROBINUL) 2 ML VIAL ONE (10:52)
[2021-10-31] MEDS ORDERED: ROCURONIUM 10 MG/ML 5 ML SYRINGE IV ONE (10:52)
[2021-10-31] MEDS ORDERED: NEOSTIGMINE 3 MG/3 ML VIAL ONE (10:52)
[2021-10-31] MEDS ORDERED: SEVOFLURANE (ULTANE) 15 ML INHAL SOLN ONE (11:08)
--- NOTE | 2021-10-31 11:12 | Progress Note-Post Operative ---
Post-Operative Progess Note Surgeon (s)/Substation Maintenance Technician (s) Surgeon BERNA ARTEAGA DO Substation Maintenance Technician: Dr. Schafer to assist in retraction dissection and closure. Pre-Operative Diagnosis left inguinal hernia Post-Operative Diagnosis incarcerated sigmoid colon left indirect inguinal hernia Procedure & Operative Findings Date of Procedure 10/31/21 Procedure Performed/Findings PROCEDURE: Open left incarcerated inguinal hernia repair COMPLICATIONS: None. INDICATIONS: The patient is a 81, male male with a inguinal hernia. He understands risks and benefits of procedure and wished to proceed with procedure. Consent was signed in the chart. DESCRIPTION OF PROCEDURE: The patient was taken to the operating suite, was prepped and draped in sterile fashion. Surgical pause was performed. Local anesthetic was infiltrated in the lower quadrant. Incision was made and cautery used to dissect down to the external oblique, which was then opened down through the external ring. The spermatic cord was then dissected around. A Singh drain was placed around it and there was no direct defect present. An indirect hernia present which was then dissected off of spermatic cord. The hernia sac was then opened and sigmoid colon was incarcerated in it. This was dissected off with Metzenbaum scissors and reduced. Twisted and suture ligated. Using ProGrip mesh, this was secured at Delio's ligament and then incorporated around the spermatic cord and placed under the external oblique. Hemostasis was achieved. The external oblique was then closed recreating the external ring and then the subcutaneous tissues were then reapproximated using 3-0 Vicryl and skin was then closed using 4-0 Monocryl in a subcuticular fashion. The abdomen was then washed and dried and Skin Affix was placed over the incision. The patient tolerated procedure well without any complications and taken to recovery room in stable condition. Anesthesia Type General Estimated Blood Loss Estimated blood loss (mL): minimal Specimens/Packing Specimens Removed hernia sac BERNA ARTEAGA DO Oct 31, 2021 11:12
[2021-10-31] MEDS ORDERED: DOCU-143 PO (11:13)
[2021-10-31] MEDS ORDERED: ACHD5005 PO (11:13)
--- NOTE | 2021-10-31 11:14 | Discharge Inst-Simple/Standard ---
Discharge Inst-Standard Discharge Medications New, Converted or Re-Newed RX: Transmitted to Pharmacy Patient Instructions/Follow Up Plan of Care/Instructions/FU: 2-3 weeks Cosmo Activity as Tolerated: No Discharge Diet: Regular Diet Other Inst to Patient Follow up Appt: Make appointment for 2-3 weeks. Instructions: No lifting greater than 10 pounds. No strenuous activity. May shower in 24 hours, no tub bath or soaking. Use incentive spirometer at home as directed. No Smoking Skin/Wound Care: You have special glue over your incision that will fall off on it's own. Symptoms to Report: Appetite Changes, Extremity Discoloration, Numbness/Tingling, Swelling Increa sed, Bleeding Excessive, Eyesight Changes, Pain Increased, Urine Color Change, Constipation(Persistent), Fever over 101 degree F, Pain/Pressure in chest, Urinating Difficulty, Cough Up/Vomit Blood, Heart Beat Irreg/Pounding, Pain/Pressure in jaw, Vaginal Bleeding Increase, Cramps in feet or legs, Lightheadedness, Pain/Pressure in shoulder, Diarrhea(Persistent), Memory Changes Suddenly, Questions/Concerns, Weight gain consecutive days, Dizziness/Fainting, Nausea/Vomiting, Shortness of Breath, Weight gain over 2 pounds If questions or concerns contact your physician Or seek help at emergency department. BERNA ARTEAGA DO Oct 31, 2021 11:14
[2021-10-31] MEDS ORDERED: morphine INJ 10 MG/ML 1ML (SYR OR VIAL) IVP ONE (11:30)
[2021-10-31] MEDS ORDERED: ONDANSETRON 4 MG/2 ML (SDV) Z0FRAN IVP PRN (11:30)
[2021-10-31] MEDS ORDERED: HYDROcodone/APAP 5 MG/325 MG (LORTAB) TAB PO ONE (12:30)
[2021-10-31] MEDS ORDERED: HYDROcodone/APAP 5 MG/325 MG (LORTAB) TAB ONE (12:39)
== END 2021-10-31 13:45 | disposition home or self-care (01) ==
LOC: SDC 08:28
PROVIDERS: ATTEND Surgery
DX: K40.30 Unilateral inguinal hernia, with obstruction, without gangrene, not specified as recurrent (principal); Z87.19 Personal history of other diseases of the digestive system; Z79.02 Long term (current) use of antithrombotics/antiplatelets; Z86.73 Personal history of transient ischemic attack (TIA), and cerebral infarction without residual deficits; Z79.82 Long term (current) use of aspirin
CPT/HCPCS: 49507; 87081; C1781

== ENCOUNTER → 2021-11-26 | Outpatient (CLI) | payer MEDICARE ==
[~2021-11-26] MED LIST changes: +ACHD5005 PO; +DOCU-143 PO
[2021-11-26 14:40] LABS: HEMATOCRIT 44 % (40-54); HEMOGLOBIN 14.9 g/dL (13.3-17.7); MEAN CORPUSCULAR HEMOGLOBIN 32 pg (25-34); MEAN CORPUSCULAR HGB CONC 34 g/dL (32-36); MEAN CORPUSCULAR VOLUME 95 fL (80-99); MEAN PLATELET VOLUME 9.4 fL (9.0-12.2); PLATELET COUNT 203 10^3/uL (130-400); WHITE BLOOD COUNT 5.9 10^3/uL (4.3-11.0)
[2021-11-26 15:02] LABS: ALANINE AMINOTRANSFERASE 30 U/L (0-55); ALBUMIN 4.1 GM/DL (3.2-4.5); ALKALINE PHOSPHATASE 78 U/L (40-136); BILIRUBIN,TOTAL 0.8 MG/DL (0.1-1.0); BUN/CREATININE RATIO 16; CALCIUM 9.3 MG/DL (8.5-10.1); CARBON DIOXIDE 21 MMOL/L (21-32); CHLORIDE 109 MMOL/L (98-107); CREATINE KINASE 154 U/L (30-200); CREATININE SERUM 1.46 MG/DL (0.60-1.30); GFR ESTIMATED 48; GLUCOSE 138 MG/DL (70-105); SODIUM 141 MMOL/L (135-145); TOTAL PROTEIN 6.6 GM/DL (6.4-8.2)
[2021-11-26 15:22] LABS: CREATINE KINASE MB 2.5 NG/ML (<6.6)
== END ==
LOC: CARD 14:30
DX: R53.83 Other fatigue (principal); R89.0 Abnormal level of enzymes in specimens from other organs, systems and tissues; R03.0 Elevated blood-pressure reading, without diagnosis of hypertension
CPT/HCPCS: 36415; 80053; 82550; 82553; 84443; 84484; 85027; 93005

== ENCOUNTER 2021-12-27 09:06 | Emergency (ER) | payer MEDICARE ==
[~2021-12-27] VITALS: Ht 170.1 cm; Wt 75.3 kg
[2021-12-27] MEDS ORDERED: ASPIRIN 81 MG CHEW (CHILDREN'S ASA) PO ONE (09:30)
[2021-12-27] MEDS ORDERED: ANTACID SUSP 30 ML UDC (MYLANTA) PO ONE (09:30)
[2021-12-27] MEDS ORDERED: LIDOCAINE 2% VISCOUS 15 ML UDC PO ONE (09:30)
--- NOTE | 2021-12-27 09:33 | ED Cardiac General ---
History of Present Illness General Chief Complaint: Chest Pain Stated Complaint: CHEST PAIN - COVID POSITIVE Nursing Triage Note: C/O CHEST PAIN STARTED THIS AM AROUND 0700. DENIES SOB HOWEVER PAIN RADIATES THROUGH TO HIS BACK WITH A 02/02. KNOWN COVID OF THURSDAY SYMPTOMS STARTED ON THURSDAY WELL. Source: patient Exam Limitations: no limitations History of Present Illness Date Seen by Provider: Dec 27, 2021 Time Seen by Provider: 09:09 Initial Comments 79-year-old male with past medical history of CAD with no stenting or interventions, hypertension, hyperlipidemia, CVA coming in due to chest pain. His chest pain is in the center of his chest, sharp, sometimes goes through to his back, has been constant for roughly 3 hours. He says last time he had pain like this it was similar to when he had pneumonia. Nothing seems to make it better or worse. He tested positive for COVID 3 days ago. Became symptomatic that day with general malaise and general weakness. Has been taking hydroxychloroquine, azithromycin, and methylprednisone since then prescribed by his physician, Dr. Johansen. He has not been taking Paxil bid. He is vaccinated with Moderna x3. Had a fever the first day, none since. Denies any cough, shortness of breath, abdominal pain, nausea, vomiting, diarrhea, focal weakness or numbness, headache, vision changes, or any other concerns. Denies any prior history of DVT or PE, no hemoptysis, no surgery within the past 4 weeks, no lower extremity swelling or pain, no recent long travel. Allergies and Home Medications Allergies Coded Allergies: No Known Drug Allergies (Verified , 10/23/21) Patient Home Medication List Home Medication List Reviewed: Yes Amlodipine Besylate (Amlodipine Besylate) 10 Mg Tablet, 10 MG PO HS, (Reported) Entered as Reported by: ANGELIKA RESENDIZ on 08/05/17 1043 Aspirin (Aspirin) 81 Mg Tab.chew, 81 MG PO DAILY, (Reported) Entered as Reported by: BRETT OLIVARES on 10/23/21 1205 Clopidogrel Bisulfate (Clopidogrel) 75 Mg Tablet, 75 MG PO HS, (Reported) Entered as Reported by: ANGELIKA RESENDIZ on 08/05/17 1043 Docusate Sodium (Colace) 100 Mg Capsule, 100 MG PO BID Prescribed by: BERNA ARTEAGA on 10/31/21 1113 Hydrocodone/Acetaminophen (Hydrocodone-Acetamin 5-325 mg) 1 Each Tablet, 1 EACH PO Q4H PRN for PAIN-MODERATE (5-7) Prescribed by: BERNA ARTEAGA on 10/31/21 1114 Losartan Potassium (Losartan Potassium) 25 Mg Tablet, 25 MG PO DAILY, (Reported) Entered as Reported by: BRETT OLIVARES on 10/23/21 1205 Metoprolol Succinate (Metoprolol Succinate) 25 Mg Tab.er.24h, 50 MG PO HS, (Reported) Entered as Reported by: ANGELIKA RESENDIZ on 08/05/17 1043 Nirmatrelvir/Ritonavir (Paxlovid Co-Pack (Eua)) 150 Mg X 2-100 Mg Tablet, 1 EACH PO UD Prescribed by: KATIE CHENG on 12/27/21 0936 Omeprazole (Omeprazole) 20 Mg Capsule.dr, 20 MG PO HS, (Reported) Entered as Reported by: ANGELIKA RESENDIZ on 08/05/17 1043 Rosuvastatin Calcium (Rosuvastatin Calcium) 10 Mg Tablet, 10 MG PO DAILY, (Reported) Entered as Reported by: BRETT OLIVARES on 10/23/21 1205 Tamsulosin HCl (Flomax) 0.4 Mg Cap, 0.4 MG PO DAILY, (Reported) Entered as Reported by: BRETT OLIVARES on 10/23/21 1205 [Prosta-Metto] , 1 TAB PO HS, (Reported) Entered as Reported by: KEERTHI GOODMAN on 10/19/07 1054 Review of Systems Review of Systems Constitutional: No chills, No fever EENTM: No Blurred Vision Respiratory: Denies Cough, Denies Shortness of Air Cardiovascular: Chest Pain Gastrointestinal: Denies Abdominal Pain Genitourinary: No Symptoms Reported Musculoskeletal: no symptoms reported Skin: no symptoms reported Psychiatric/Neurological: No Symptoms Reported Endocrine: No Symptoms Reported Hematologic/Lymphatic: No Symptoms Reported All Other Systems Reviewed Negative Unless Noted: Yes Past Qimfigz-Rqkvuk-Gsgdxy Hx Patient Social History Tobacco Use?: No Immunizations Up To Date First/Initial COVID19 Vaccinat: 09/01/20 Second COVID19 Vaccination Mark: 10/11/20 Third COVID19 Vaccination Date: 06/16/21 Seasonal Allergies Seasonal Allergies: No Past Medical History Surgeries: Yes (COLON RESECTION, MELANOMA FROM EAR, KIDNEY STONE, ) Gallbladder Respiratory: No Currently Using CPAP: No Currently Using BIPAP: No Cardiac: Yes High Cholesterol, Hypertension Neurological: Yes Headaches /Migraines, Stroke, TIA Reproductive Disorders: No Genitourinary: Yes Kidney Stones, UTI-Chronic Gastrointestinal: Yes (COLON RESECTION WHEN 5 MONTHS OLD (GANGRENE)) Gastroesophageal Reflux, Gall Bladder Disease Musculoskeletal: Yes Arthritis Endocrine: No HEENT: Yes (2020 REMOVED CATARACTS) Cataract 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 0.0oz. 72.774914ci; 26.00 BMI Method:Stated General Appearance: No Apparent Distress, WD/WN HEENT: PERRL/EOMI, Normal ENT Inspection, Pharynx Normal Neck: Full Range of Motion, Normal Inspection, Non Tender, Supple Respiratory: Chest Non Tender, Lungs Clear, Normal Breath Sounds, No Accessory Muscle Use, No Respiratory Distress Cardiovascular: Regular Rate, Rhythm, No Edema, Normal Peripheral Pulses Gastrointestinal: Normal Bowel Sounds, Non Tender, Soft; No Distended, No Guarding; Other (abdominal incision well healed and no signs of infection in the left groin) Extremity: Normal Capillary Refill, Normal Inspection, Normal Range of Motion, Non Tender, No Calf Tenderness Neurologic/Psychiatric: Alert, No Motor/Sensory Deficits, Normal Mood/Affect Skin: Normal Color, Warm/Dry Lymphatic: No Adenopathy Progress/Results/Core Measures Results/Orders Lab Results Laboratory Tests Test 12/27/21 09:20 Range/Units White Blood Count 10.4 4.3-11.0 10^3/uL Red Blood Count 4.74 4.30-5.52 10^6/uL Hemoglobin 15.2 13.3-17.7 g/dL Hematocrit 44 40-54 % Mean Corpuscular Volume 94 80-99 fL Mean Corpuscular Hemoglobin 32 25-34 pg Mean Corpuscular Hemoglobin Concent 34 32-36 g/dL Red Cell Distribution Width 13.6 10.0-14.5 % Platelet Count 199 130-400 10^3/uL Mean Platelet Volume 9.9 9.0-12.2 fL Immature Granulocyte % (Auto) 1 % Neutrophils (%) (Auto) 82 H 42-75 % Lymphocytes (%) (Auto) 11 L 12-44 % Monocytes (%) (Auto) 7 0-12 % Eosinophils (%) (Auto) 0 0-10 % Basophils (%) (Auto) 0 0-10 % Neutrophils # (Auto) 8.5 H 1.8-7.8 10^3/uL Lymphocytes # (Auto) 1.2 1.0-4.0 10^3/uL Monocytes # (Auto) 0.7 0.0-1.0 10^3/uL Eosinophils # (Auto) 0.0 0.0-0.3 10^3/uL Basophils # (Auto) 0.0 0.0-0.1 10^3/uL Immature Granulocyte # (Auto) 0.1 0.0-0.1 10^3/uL Prothrombin Time 13.2 12.2-14.7 SEC INR Comment 1.0 0.8-1.4 Activated Partial Thromboplast Time 26 24-35 SEC D-Dimer 0.44 0.00-0.49 UG/ML Sodium Level 141 135-145 MMOL/L Potassium Level 3.9 3.6-5.0 MMOL/L Chloride Level 108 H 98-107 MMOL/L Carbon Dioxide Level 20 L 21-32 MMOL/L Anion Gap 13 5-14 MMOL/L Blood Urea Nitrogen 19 H 7-18 MG/DL Creatinine 1.41 H 0.60-1.30 MG/DL Estimat Glomerular Filtration Rate 50 BUN/Creatinine Ratio 13 Glucose Level 199 H 70-105 MG/DL Calcium Level 9.0 8.5-10.1 MG/DL Corrected Calcium 8.7 8.5-10.1 MG/DL Magnesium Level 2.1 1.6-2.4 MG/DL Total Bilirubin 0.3 0.1-1.0 MG/DL Aspartate Amino Transf (AST/SGOT) 27 5-34 U/L Alanine Aminotransferase (ALT/SGPT) 36 0-55 U/L Alkaline Phosphatase 74 40-136 U/L Troponin I < 0.028 <0.028 NG/ML B-Type Natriuretic Peptide 149.3 H <100.0 PG/ML Total Protein 6.8 6.4-8.2 GM/DL Albumin 4.4 3.2-4.5 GM/DL Lipase 11 8-78 U/L My Orders Orders - KATIE CHENG MD Cbc With Automated Diff (12/27/21 09:12) Magnesium (12/27/21 09:12) Chest 1 View, Ap/Pa Only (12/27/21 09:12) Ekg Tracing (12/27/21 09:12) Comprehensive Metabolic Panel (12/27/21 09:12) Protime With Inr (12/27/21 09:12) Partial Thromboplastin Time (12/27/21 09:12) O2 (12/27/21 09:12) Monitor-Rhythm Ecg Trace Only (12/27/21 09:12) Ed Iv/Invasive Line Start (12/27/21 09:12) Bnp [place] (12/27/21 09:12) Fibrin Degradation Products (12/27/21 09:12) Troponin I [place] (12/27/21 09:12) Lipase (12/27/21 09:26) Aspirin Chewable Tablet (Baby Aspirin Ch (12/27/21 09:30) Lidocaine 2% Viscous 15 Ml (Xylocaine Vi (12/27/21 09:30) Antacid Suspension (Mylanta Suspension (12/27/21 09:30) Medications Given in ED Current Medications Medications Dose Ordered Sig/Osiel Route Start Time Stop Time Status Last Admin Dose Admin Al Hydrox/Mg Hydrox/Simethicone 30 ml ONCE ONCE PO 12/27/21 09:30 12/27/21 09:31 DC 12/27/21 09:51 30 ML Aspirin 324 mg ONCE ONCE PO 12/27/21 09:30 12/27/21 09:31 DC 12/27/21 09:50 324 MG Lidocaine HCl 15 ml ONCE ONCE PO 12/27/21 09:30 12/27/21 09:31 DC 12/27/21 09:51 15 ML Vital Signs/I&O 12/27/21 09:17 Temp 36.6 Pulse 62 Resp 18 B/P (MAP) 159/87 (111) Pulse Ox 96 Blood Pressure Mean: 111 Progress Progress Note : Progress Note 81-year-old male with above history coming in due to chest pain. ABCs were intact and vitals were stable on presentation. Physical exam reassuring with no focal abnormalities. EKG with no acute ischemic changes. An IV was placed and basic labs were obtained including cardiac biomarkers. He was given aspirin as well as Maalox. Troponin negative, chest x-ray clear, and on reassessment he was well-appearing. D-dimer negative and he would be relatively low risk for PE anyways, clinical symptoms do not really fit. PE sufficiently ruled out at this time. ACS unlikely given the constant pain for hours with a negative troponin and normal EKG. I believe he is stable for discharge with outpatient follow-up. He was sent home with strict return precautions. Initial ECG Impression Date: Dec 27, 2021 Initial ECG Impression Time: 09:21 Initial ECG Rate: 60 Initial ECG Rhythm: Normal Sinus Comment Narrow QRS, normal axis, no significant ST changes or T wave abnormalities Diagnostic Imaging Diagonstic Imaging: Xray Plain Films/CT/US/NM/MRI: chest Comments [facility] [place], [place] NAME: REGAN GUZMAN [facility] REC#: [id number] PT STATUS: REG ER : 1940 PHYSICIAN: KATIE CHENG MD ADMIT DATE: 12/27/21/ER Draft Date of Exam:12/27/21 CHEST 1 VIEW, AP/PA ONLY INDICATION: Chest pain AP view of chest is obtained with comparison made to study of 02/02/2013. Overall heart size and pulmonary vascularity are within normal limits. There is mild elevation of the left hemidiaphragm. No consolidation or significant pleural fluid is seen. Degenerative findings are seen in the shoulder girdles. IMPRESSION: Stable elevated left hemidiaphragm with otherwise unremarkable chest. Dictated on workstation # [id number] Dict: 12/27/2144 Trans: 12/27/2145 CV [id number] Interpreted by: FREDI BUSH MD Electronically signed by: Departure Impression Primary Impression: COVID-19 Additional Impression: Chest pain Qualified Codes: R07.82 - Intercostal pain Disposition: 01 HOME, SELF-CARE Condition: Stable Departure-Patient Inst. Decision time for Depature: 10:25 Referrals: AYDE JOHANSEN MD (PCP/Family) Primary Care Physician Patient Instructions: Chest Pain (DC), COVID-19 ED Add. Discharge Instructions: I would like you to start taking Paxlovid. It will be 3 pills twice a day for 5 days. Some people have been having a mild rebound in her symptoms after they have finished. If your symptoms come back significantly after you finished, it often is warranted to do a second round of it. For the most part, most people do very well with it and it does help prevent serious disease. If your chest pain gets worse or you have any other concerns then please come back to the ER. Scripts Nirmatrelvir/Ritonavir (Paxlovid Co-Pack (Eua)) 150 Mg X 2-100 Mg Tablet 1 EACH PO UD for 5 Days, #1 EACH Prov: KATIE CHENG MD 12/27/21 KATIE CHENG MD Dec 27, 2021 09:33
[2021-12-27] MEDS ORDERED: NIRM1TAB PO (09:36)
[2021-12-27 09:38] LABS: BASOPHILS % (AUTO) 0 % (0-10); EOSINOPHILS % (AUTO) 0 % (0-10); HEMATOCRIT 44 % (40-54); HEMOGLOBIN 15.2 g/dL (13.3-17.7); LYMPHOCYTES # (AUTO) 1.2 10^3/uL (1.0-4.0); LYMPHOCYTES % (AUTO) 11 % (12-44); MEAN CORPUSCULAR HEMOGLOBIN 32 pg (25-34); MEAN CORPUSCULAR HGB CONC 34 g/dL (32-36); MEAN CORPUSCULAR VOLUME 94 fL (80-99); MEAN PLATELET VOLUME 9.9 fL (9.0-12.2); MONOCYTES # (AUTO) 0.7 10^3/uL (0.0-1.0); MONOCYTES % (AUTO) 7 % (0-12); NEUTROPHILS # (AUTO) 8.5 10^3/uL (1.8-7.8); NEUTROPHILS % (AUTO) 82 % (42-75); PLATELET COUNT 199 10^3/uL (130-400); WHITE BLOOD COUNT 10.4 10^3/uL (4.3-11.0)
--- NOTE | 2021-12-27 09:45 | Diagnostic Imaging Report ---
INDICATION: Chest pain AP view of chest is obtained with comparison made to study of 02/02/2013. Overall heart size and pulmonary vascularity are within normal limits. There is mild elevation of the left hemidiaphragm. No consolidation or significant pleural fluid is seen. Degenerative findings are seen in the shoulder girdles. IMPRESSION: Stable elevated left hemidiaphragm with otherwise unremarkable chest. Dictated by: Dictated on workstation # [id number]
[2021-12-27 09:56] LABS: ALBUMIN 4.4 GM/DL (3.2-4.5); POTASSIUM 3.9 MMOL/L (3.6-5.0)
[2021-12-27 09:57] LABS: PROTHROMBIN TIME PATIENT 13.2 SEC (12.2-14.7)
[2021-12-27 09:58] LABS: TOTAL PROTEIN 6.8 GM/DL (6.4-8.2)
[2021-12-27 10:00] LABS: BILIRUBIN,TOTAL 0.3 MG/DL (0.1-1.0)
[2021-12-27 10:02] LABS: CREATININE SERUM 1.41 MG/DL (0.60-1.30)
[2021-12-27 10:05] LABS: MAGNESIUM 2.1 MG/DL (1.6-2.4)
[2021-12-27 10:06] LABS: LIPASE 11 U/L (8-78)
[2021-12-27 10:38] VITALS: BP 134/88
== END 2021-12-27 10:38 | disposition home or self-care (01) ==
LOC: EDUNIT# 09:06 → ER 09:08
DX: U07.1 COVID-19 (principal); Z73.0 Burn-out
CPT/HCPCS: 36415; 71045; 80053; 83690; 83735; 83880; 84484; 85025; 85379; 85610; 85730; 93005; 93041

== ENCOUNTER → 2023-05-05 | Outpatient (CLI) | payer MEDICARE ==
[~2023-05-05] MED LIST changes: +NIRM1TAB PO
== END ==
LOC: CANPRECLI → CARD 10:57
PROVIDERS: ATTEND Internal Medicine Cardiovascular Disease
DX: I34.0 Nonrheumatic mitral (valve) insufficiency (principal); I10 Essential (primary) hypertension; I25.10 Atherosclerotic heart disease of native coronary artery without angina pectoris
CPT/HCPCS: 93306

== ENCOUNTER → 2023-06-03 | Outpatient (CLI) | payer MEDICARE ==
[~2023-06-03] MED LIST changes: +CATHETER FLUSH 10 ML SYR IVP PRN
[2023-06-03 09:05] VITALS: BP 140/97
--- NOTE | 2023-06-03 11:21 | Cardiology Stress Test Report ---
Stress Test Report Date of Procedure/Referring: Date of Procedure: Jun 03, 2023 PCP Hosea Leiva MD Admitting Physician Admitting Physician: Attending Physician: Tom Marroquin MD Baseline Heart Rate: 52 Baseline Blood Pressure: Blood Pressure Systolic: 140 Blood Pressure Diastolic: 97 Vital Signs Date Time Temp Pulse Resp B/P (MAP) Pulse Ox O2 Delivery O2 Flow Rate FiO2 06/03/23 09:05 52 140/97 (111) 97 Room Air Baseline Vital Signs Vital Signs Date Time Temp Pulse Resp B/P (MAP) Pulse Ox O2 Delivery O2 Flow Rate FiO2 06/03/23 09:05 52 140/97 (111) 97 Room Air Baseline EKG: Baseline EKG: NSR Summary: After explaining the procedure and details to the patient, he signed the consent and was brought to the stress nuclear laboratory. Patient exercised on standard Lvei protocol, EKG, heart rate and blood pressure were monitored continuously, resting and stress doses of radio tracer were injected, imaging was acquired and reviewed in the short axis, horizontal long axis and vertical long axis views Patient was able to exercise for a total of 6 minutes on Levi protocol, METs 7.3 Maximum heart rate 130 Maximum blood pressure 231/91 Stress EKG, Minimal nondiagnostic changes Recovery EKG, Return to baseline TID: 1.05 SSS: 4 SDS: 4 EF: 60 Conclusion: Good exercise tolerance for 6 minutes on standard Levi protocol, 7.3 METS achieving 94% of maximal expected heart rate Appropriate heart rate response to exercise with hypertensive response to exercise with peak blood pressure 231/91 return to baseline during recovery Minimal nondiagnostic EKG changes with exercise return to baseline during re covery No significant ischemia or infarction noted on SPECT images Normal left ventricular size, ejection fraction 60% Copy Copies To 1: FATOU BANKS MD, BASHAR J MD Jun 03, 2023 11:21
== END ==
LOC: CARD 07:29
PROVIDERS: ATTEND Internal Medicine Cardiovascular Disease
DX: I10 Essential (primary) hypertension (principal); I25.10 Atherosclerotic heart disease of native coronary artery without angina pectoris
CPT/HCPCS: 78452; 93017; A9502